=== PATIENT | female | born 1975 | race Caucasian/White ===

== ENCOUNTER 2016-05-06 08:17 | Inpatient (IN) | payer OTHER ==
--- NOTE | 2016-05-06 10:23 | HP ---
CIWA Score - CIWA Score Nausea/Vomitin Muscle Tremors: 3 Anxiety: 3 Agitation: 3 Paroxysmal Sweats: 2 Orientation: 0-Oriented Tacttile Disturbances: 2-Mild Itch/Numbness/Burn Auditory Disturbances: 2-Mild Harshness/Frighten Visual Disturbances: 2-Mild Sensitivity Headache: 2-Mild CIWA-Ar Total Score: 22 Admission ROS BHS - HPI Chief Complaint: i need help to stop drinking alcohol and cocaine Allergies/Adverse Reactions: Allergies Allergy/AdvReac Type Severity Reaction Status Date / Time No Known Allergies Allergy Verified 05/06/16 10:20 History of Present Illness: this 41 years old female with alcohol and cocaine dependence,withdrawal symptom, last detox [facility] 2016 relapsed lately history of asthma ,gerd,depression Exam Limitations: No Limitations - Ebola screening Have you traveled outside of the country in the last 21 days: No Have you had contact with anyone from an Ebola affected area: No Have you been sick,other than usual withdrawal symptoms: No Do you have a fever: No - Review of Systems Constitutional: Loss of Appetite, Malaise, Night Sweats, Changes in sleep, Weakness EENT: reports: Nose Congestion Respiratory: reports: No Symptoms reported, Other (history of asthma) Cardiac: reports: No Symptoms Reported GI: reports: Nausea, Indigestion, Abdominal cramping : reports: No Symptoms Reported Musculoskeletal: reports: Back Pain, Muscle Pain Integumentary: reports: Dryness Neuro: reports: Tremors Endocrine: reports: No Symptoms Reported Hematology: reports: No Symptoms Reported Psychiatric: reports: Anxious, Depressed Patient History - Patient Medical History Hx Anemia: Yes (IRON DEFICIENCY ANEMIA AND SICKLE CELL TRAIT. NOT CURRENTLY ON IRON SUPPLE) Hx Asthma: Yes (ALBUTEROL INHALER) Hx Chronic Obstructive Pulmonary Disease (COPD): No Hx Cardiac Disorders: No Hx Hypertension: No Hx Hypercholesterolemia: No HX Cerebrovascular Accident: No Hx Seizures: No Hx Diabetes: No Hx Gastrointestinal Disorders: Yes (WAS ON NEXIUM) Hx Genitourinary Disorders: Yes (LHX OF CHLAMYDIA, YEAST--UTIs TX IN THE PAST) Hx Sexually Transmitted Disorders: No Hx Renal Disease (ESRD): No Hx Thyroid Disease: No Hx Human Immunodeficiency Virus (HIV): No (NEGATIVE HX) Hx Hepatitis C: No Hx Depression: Yes (NOT CURRENTLY ON MED, BUT WAS ON ZOLOFT IN THE PAST) Hx Suicide Attempt: No Hx Bipolar Disorder: No Hx Schizophrenia: No Other Medical History: no suicidal,no homicidal - Patient Surgical History Past Surgical History: Yes Other Surgical History: ovarian cyst was removed 1992 Anesthesia Reaction: No - PPD History Previous Implant?: Yes Documented Results: Negative w/o proof Implanted On Prior R Admission?: Yes Date: 02/11/14 PPD to be Administered?: Yes - Reproductive History Patient is a Female of Child Bearing Age (11 -55 yrs old): Yes Last Menstrual Period: 04/28/16 Patient : No - Smoking Cessation Smoking history: Current every day smoker Have you smoked in the past 12 months: Yes Aproximately how many cigarettes per day: 30 Hx Chewing Tobacco Use: No Initiated information on smoking cessation: Yes 'Breaking Loose' booklet given: 05/06/16 - Substance & Tx. History Hx Alcohol Use: Yes Hx Substance Use: Yes Substance Use Type: Alcohol, Cocaine Hx Substance Use Treatment: Yes ([facility] 2016) - Substances Abused Cocaine Route: Inhalation Frequency: 3-6 times per week Amount used: $40 Age of first use: 34 Date of Last Use: 05/06/16 Alcohol-beer/dana Route: Oral Frequency: Daily Amount used: 4 (40 oz.) Age of first use: 18 Date of Last Use: 05/06/16 Family Disease History - Family Disease History Family Disease History: Diabetes: Grandparent (HTN), Heart Disease: Father ( alcohol), Other: Grandparent, Mother (alcohol), Sister (THYROID PROBLEM) Admission Physical Exam S - Vital Signs Vital Signs: Vital Signs Temperature 97.1 F L 05/06/16 10:29 Pulse Rate 93 H 05/06/16 10:29 Respiratory Rate 18 05/06/16 10:29 Blood Pressure 115/79 05/06/16 10:29 O2 Sat by Pulse Oximetry (%) - Physical General Appearance: Yes: Moderate Distress, Tremorous, Irritable, Sweating, Anxious HEENTM: Yes: Nasal Congestion Respiratory: Yes: Lungs Clear Neck: Yes: Within Normal Limits Breast: Yes: Breast Exam Deferred Cardiology: Yes: Within Normal Limits, Regular Rhythm, Regular Rate, S1, S2 Abdominal: Yes: Within Normal Limits, Normal Bowel Sounds, Non Tender, Soft Genitourinary: Yes: Within Normal Limits Back: Yes: Muscle Spasm Musculoskeletal: Yes: Back pain, Muscle Pain Extremities: Yes: Tremors Neurological: Yes: multimedia services manager II-XII NML intact, Fully Oriented, Alert, Motor Strength 5/5 Integumentary: Yes: Dry Lymphatic: Yes: Within Normal Limits - Diagnostic (1) Alcohol dependence with uncomplicated withdrawal Current Visit: Yes Status: Acute (2) Cocaine dependence, uncomplicated Current Visit: Yes Status: Acute (3) Asthma Current Visit: No Status: Chronic (4) GERD (gastroesophageal reflux disease) Current Visit: Yes Status: Acute (5) Anxiety associated with depression Current Visit: Yes Status: Acute (6) Sickle cell trait Current Visit: Yes Status: Acute (7) Nicotine dependence Current Visit: Yes Status: Acute Cleared for Admission S - Detox or Rehab S Level of Care: Medically Managed Detox Regimen/Protocol: Librium S Breath Alcohol Content Breath Alcohol Content: 0
[2016-05-06] MEDS ORDERED: chlordiazePOXIDE HCL 25 MG CAPSULE PO ONE (10:34)
[2016-05-06] MEDS ORDERED: LOPERAMIDE HCL 2 MG CAPSULE PO PRN (10:34)
[2016-05-06] MEDS ORDERED: IBUPROFEN 400 MG TABLET (FP) PO PRN (10:34)
[2016-05-06] MEDS ORDERED: MENTHOL/PHENOL 1 EACH UD MM PRN (10:34)
[2016-05-06] MEDS ORDERED: ACETAMINOPHEN 325 MG TABLET (FP) PO PRN (10:34)
[2016-05-06] MEDS ORDERED: hydrOXYzine PAMOATE 25 MG CAPSULE (FP) PO PRN (10:34)
[2016-05-06] MEDS ORDERED: MAG HYDROX/AL HYDROX/SIMETH 30 ML UNIT-DOSE CUP PO PRN (10:34)
[2016-05-06] MEDS ORDERED: MAGNESIUM CITRATE 300 ML BOTTLE PO PRN (10:34)
[2016-05-06] MEDS ORDERED: guaiFENesin/D-METHORPHAN HB 10 ML UNIT-DOSE CUPS PO PRN (10:34)
[2016-05-06] MEDS ORDERED: OXYMETAZOLINE 0.05% NASAL SOLUTION 15 ML BOTTLE NS PRN (10:39)
[2016-05-06 10:42] VITALS: BMI 29.9
[2016-05-06] MEDS: chlordiazePOXIDE HCL 25 MG CAPSULE PO PRN (13:39)
[2016-05-06] MEDS: PANTOPRAZOLE 40 MG TABLET (FP) PO SCH (13:39)
[2016-05-06] MEDS: ASPIRIN COATED 81 MG TABLET.EC PO SCH (13:39)
[2016-05-06] MEDS: chlordiazePOXIDE HCL 25 MG CAPSULE PO SCH ×2 (17:10→22:09)
--- NOTE | 2016-05-06 17:24 | CONSULT ---
[facility] Psychiatric Consult - Data Date of interview: 05/06/16 Admission source: [facility] Identifying data: Readmission to [facility] for this 41 y/o female seeking detox treatment on for alcohol and cocaine dependence.Patient is ,a mother of two,domiciled,unemployed and supported by relatives. Substance Abuse History: - Smoking Cessation. Smoking history: Current every day smoker. Have you smoked in the past 12 months: Yes. Aproximately how many cigarettes per day: 30. Hx Chewing Tobacco Use: No. Initiated information on smoking cessation: Yes. 'Breaking Loose' booklet given: 05/06/16. - Substance & Tx. History. Hx Alcohol Use: Yes. Hx Substance Use: Yes. Substance Use Type : Alcohol, Cocaine. Hx Substance Use [facility]: [facility] - Substances Abused. Cocaine. Route: Inhalation. Frequency: 3-6 times per week. Amount used: $40. Age of first use: 34. Date of Last Use: . Alcohol-beer/dana. Route: Oral. Frequency: Daily. Amount used : 4 (40 oz.). Age of first use: 18. Date of Last Use: 05/06/16. Confirmed by the patient. Medical History: Anemia,bronchial asthma and a history of treatment for chlamydia.Noted report of removal ovarian cyst (1992). Psychiatric History: Patient denies history of psychiatric hospitalizations. Physical/Sexual Abuse/Trauma History: Patient denies. Mental Status Exam - Mental Status Exam Alert and Oriented to: Time, Place, Person Cognitive Function: Good Patient Appearance: Well Groomed Mood: Hopeful, Euthymic Affect: Appropriate, Normal Range Patient Behavior: Fatigued, Appropriate, Cooperative Speech Pattern: Clear, Appropriate Voice Loudness: Normal Thought Process: Goal Oriented Thought Disorder: Not Present Hallucinations: Denies Suicidal Ideation: Denies Homicidal Ideation: Denies Insight/Judgement: Poor Sleep: Well Appetite: Good Muscle strength/Tone: Normal Gait/Station: Normal Psychiatric Findings - Problem List ([place] 1, 2,3) (1) Alcohol dependence with uncomplicated withdrawal Current Visit: Yes Status: Acute (2) Cocaine dependence, uncomplicated Current Visit: Yes Status: Acute (3) Nicotine dependence Current Visit: Yes Status: Acute (4) GERD (gastroesophageal reflux disease) Current Visit: Yes Status: Acute (5) Sickle cell trait Current Visit: Yes Status: Acute (6) Drug-induced mood disorder Current Visit: No Status: Acute (7) Anemia Current Visit: No Status: Chronic Comment: H/O ANEMIA AND SICKLE CELL TRAIT (8) Asthma Current Visit: No Status: Chronic - Initial Treatment Plan Initial Treatment Plan: Psychoeducation.Detoxification.Observation.
[2016-05-06] MEDS: ALBUTEROL SO4 6.7 GM HFA INHALER IH PRN (17:37)
[2016-05-06 18:30] LABS: URINE APPEARANCE CLEAR; URINE BILIRUBIN NEGATIVE (NEGATIVE); URINE BLOOD NEGATIVE (NEGATIVE); URINE COLOR LTYELLOW; URINE GLUCOSE (UA) NEGATIVE (NEGATIVE); URINE KETONE NEGATIVE (NEGATIVE); URINE LEUK ESTERASE TRACE (NEGATIVE); URINE NITRITE NEGATIVE (NEGATIVE); URINE PROTEIN NEGATIVE (NEGATIVE); URINE UROBILINOGEN NEGATIVE E.U./dl (0.2-1.0)
[2016-05-06 18:38] LABS: URINE MUCUS RARE; URINE RBC <1 /hpf (0-3); URINE WBC 2 /hpf (3-5)
[2016-05-06] MEDS: diphenhydrAMINE HCL 50 MG CAPSULE PO PRN (22:09)
[2016-05-06] MEDS: THIAMINE HCL 100 MG TABLET (FP) PO SCH (22:09)
[2016-05-06] MEDS: NICOTINE POLACRILEX 2 MG GUM BUC PRN (22:52)
[2016-05-07] MEDS: chlordiazePOXIDE HCL 25 MG CAPSULE PO SCH ×4 (05:40→22:10)
--- NOTE | 2016-05-07 10:09 | PN ---
S CIWA - CIWA Score Nausea/Vomitin Muscle Tremors: 3 Anxiety: 3 Agitation: 2 Paroxysmal Sweats: No Perspiration Orientation: 1-Uncertain about Date Tacttile Disturbances: 1-Very Mild Itch/Numbness Auditory Disturbances: 1-Very Mild Visual Disturbances: 1-Very Mild Sensitivity Headache: 2-Mild CIWA-Ar Total Score: 17 BHS Progress Note (SOAP) Subjective: ALERT,IRRITABLE,ANXIOUS,INTERRUPTED SLEEP,TREMOR,PAIN IN THE BODY Objective: 05/07/16 10:08 Vital Signs Temperature 98.1 F 05/07/16 09:47 Pulse Rate 89 05/07/16 09:47 Respiratory Rate 18 05/07/16 09:47 Blood Pressure 137/79 05/07/16 09:47 O2 Sat by Pulse Oximetry (%) 05/07/16 10:08 EKG NSR NORMAL ECG Laboratory Last Values Urine Color Ltyellow 05/06/16 13:00 Urine Appearance Clear 05/06/16 13:00 Urine pH 6.0 (5.0-8.0) 05/06/16 13:00 Ur Specific [place] 1.013 (1.001-1.035) 05/06/16 13:00 Urine Protein Negative (NEGATIVE) 05/06/16 13:00 Urine Glucose (UA) Negative (NEGATIVE) 05/06/16 13:00 Urine Ketones Negative (NEGATIVE) 05/06/16 13:00 Urine Blood Negative (NEGATIVE) 05/06/16 13:00 Urine Nitrite Negative (NEGATIVE) 05/06/16 13:00 Urine Bilirubin Negative (NEGATIVE) 05/06/16 13:00 Urine Urobilinogen Negative E.U./dl (0.2-1.0) 05/06/16 13:00 Ur Leukocyte Esterase Trace (NEGATIVE) H 05/06/16 13:00 Urine RBC <1 /hpf (0-3) 05/06/16 13:00 Urine WBC 2 /hpf (3-5) 05/06/16 13:00 Ur Epithelial Cells Few /hpf (FEW) 05/06/16 13:00 Urine Mucus Rare 05/06/16 13:00 LABS PENDING Assessment: 05/07/16 10:09 WITHDRAWAL SYMPTOM Plan: CONTINUE DETOX
[2016-05-07] MEDS: PRENATAL VITAMINS W/ FOLIC ACID TABLET (FP) PO SCH (10:11)
[2016-05-07] MEDS: P-EPHED 60MG/TRIPROLIDI 2.5MG TABLET PO PRN ×2 (10:12→22:11)
[2016-05-07] MEDS: PANTOPRAZOLE 40 MG TABLET (FP) PO SCH (10:12)
[2016-05-07] MEDS: ASPIRIN COATED 81 MG TABLET.EC PO SCH (10:12)
[2016-05-07 10:26] LABS: MCH 31.1 pg (25.7-33.7); MCHC 33.1 g/dl (32.0-36.0); MEAN CELL VOLUME 93.9 fl (80-96); MEAN PLT VOLUME 11.4 fl (7.5-11.1); PLATELET COUNT 249 K/MM3 (134-434); RDW 13.6 % (11.6-15.6); WHITE BLOOD COUNT 12.4 K/mm3 (4.0-10.0)
[2016-05-07 10:37] LABS: ALBUMIN 4.1 g/dl (3.4-5.0); ALK PHOS 94 U/L (45-117); ANION GAP 10 (8-16); BILIRUBIN,TOTAL 0.3 mg/dL (0.2-1.0); CALCIUM 8.9 mg/dL (8.5-10.1); CO2 27 mmol/L (21-32); CREATININE 0.7 mg/dL (0.55-1.02); GLUCOSE,RANDOM 98 mg/dL (74-106); SGOT/AST 13 U/L (15-37); SGPT/ALT 25 U/L (12-78); TOT PROT 7.1 g/dl (6.4-8.2)
[2016-05-07] MEDS: NICOTINE POLACRILEX 2 MG GUM BUC PRN ×3 (11:06→22:12)
[2016-05-07 11:18] LABS: HIV 1 & 2 AB NEGATIVE; HIV 1 AGp24 NEGATIVE
--- NOTE | 2016-05-07 13:25 | EKG ---
Test Reason : Blood Pressure : / mmHG Vent. Rate : 086 BPM Atrial Rate : 086 BPM P-R Int : 132 ms QRS Dur : 068 ms QT Int : 384 ms P-R-T Axes : 050 073 060 degrees QTc Int : 459 ms NORMAL SINUS RHYTHM NORMAL ECG NO PREVIOUS ECGS AVAILABLE Confirmed by TURNER JUAN MD ([id number]) on 05/07/2016 1:25:15 PM Referred By: Kana Magaña Confirmed By:TURNER JUAN MD
[2016-05-07] MEDS: chlordiazePOXIDE HCL 25 MG CAPSULE PO PRN (18:50)
[2016-05-07] MEDS: diphenhydrAMINE HCL 50 MG CAPSULE PO PRN (22:10)
[2016-05-07] MEDS: THIAMINE HCL 100 MG TABLET (FP) PO SCH (22:10)
[2016-05-07] MEDS: MAGNESIUM HYDROX 2400MG/30ML ORAL SUSPENSION 30 ML CUP PO PRN (23:53)
[2016-05-07] MEDS: ALBUTEROL SO4 6.7 GM HFA INHALER IH PRN (23:54)
[2016-05-08] MEDS: chlordiazePOXIDE HCL 25 MG CAPSULE PO SCH ×2 (05:24→10:11)
[2016-05-08] MEDS: PANTOPRAZOLE 40 MG TABLET (FP) PO SCH (10:10)
[2016-05-08] MEDS: PRENATAL VITAMINS W/ FOLIC ACID TABLET (FP) PO SCH (10:10)
--- NOTE | 2016-05-08 10:10 | PN ---
S CIWA - CIWA Score Nausea/Vomitin Muscle Tremors: 3 Anxiety: 3 Agitation: 2 Paroxysmal Sweats: 1-Minimal Palms Moist Orientation: 0-Oriented Tacttile Disturbances: 1-Very Mild Itch/Numbness Auditory Disturbances: 1-Very Mild Visual Disturbances: 1-Very Mild Sensitivity Headache: 2-Mild CIWA-Ar Total Score: 17 BHS Progress Note (SOAP) Subjective: alert,irritable,anxious,interrupted sleep,tremor Objective: 05/08/16 10:06 Vital Signs Temperature 97.5 F L 05/08/16 09:21 Pulse Rate 88 05/08/16 09:21 Respiratory Rate 16 05/08/16 09:21 Blood Pressure 124/74 05/08/16 09:21 O2 Sat by Pulse Oximetry (%) 05/08/16 10:07 Laboratory Last Values WBC 12.4 K/mm3 (4.0-10.0) H D 05/07/16 05:50 RBC 4.61 M/mm3 (3.60-5.2) 05/07/16 05:50 Hgb 14.3 GM/dL (10.7-15.3) 05/07/16 05:50 Hct 43.3 % (32.4-45.2) 05/07/16 05:50 MCV 93.9 fl (80-96) 05/07/16 05:50 MCHC 33.1 g/dl (32.0-36.0) 05/07/16 05:50 RDW 13.6 % (11.6-15.6) 05/07/16 05:50 Plt Count 249 K/MM3 (134-434) D 05/07/16 05:50 MPV 11.4 fl (7.5-11.1) H 05/07/16 05:50 Sodium 139 mmol/L (136-145) 05/07/16 05:50 Potassium 3.9 mmol/L (3.5-5.1) 05/07/16 05:50 Chloride 102 mmol/L (98-107) 05/07/16 05:50 Carbon Dioxide 27 mmol/L (21-32) 05/07/16 05:50 Anion Gap 10 (8-16) 05/07/16 05:50 BUN 8 mg/dL (7-18) D 05/07/16 05:50 Creatinine 0.7 mg/dL (0.55-1.02) 05/07/16 05:50 Creat Clearance w eGFR > 60 (>60) 05/07/16 05:50 Random Glucose 98 mg/dL (74-106) 05/07/16 05:50 Calcium 8.9 mg/dL (8.5-10.1) 05/07/16 05:50 Total Bilirubin 0.3 mg/dL (0.2-1.0) D 05/07/16 05:50 AST 13 U/L (15-37) L D 05/07/16 05:50 ALT 25 U/L (12-78) 05/07/16 05:50 Alkaline Phosphatase 94 U/L (45-117) D 05/07/16 05:50 Total Protein 7.1 g/dl (6.4-8.2) D 05/07/16 05:50 Albumin 4.1 g/dl (3.4-5.0) D 05/07/16 05:50 Urine Color Ltyellow 05/06/16 13:00 Urine Appearance Clear 05/06/16 13:00 Urine pH 6.0 (5.0-8.0) 05/06/16 13:00 Ur Specific [place] 1.013 (1.001-1.035) 05/06/16 13:00 Urine Protein Negative (NEGATIVE) 05/06/16 13:00 Urine Glucose (UA) Negative (NEGATIVE) 05/06/16 13:00 Urine Ketones Negative (NEGATIVE) 05/06/16 13:00 Urine Blood Negative (NEGATIVE) 05/06/16 13:00 Urine Nitrite Negative (NEGATIVE) 05/06/16 13:00 Urine Bilirubin Negative (NEGATIVE) 05/06/16 13:00 Urine Urobilinogen Negative E.U./dl (0.2-1.0) 05/06/16 13:00 Ur Leukocyte Esterase Trace (NEGATIVE) H 05/06/16 13:00 Urine RBC <1 /hpf (0-3) 05/06/16 13:00 Urine WBC 2 /hpf (3-5) 05/06/16 13:00 Ur Epithelial Cells Few /hpf (FEW) 05/06/16 13:00 Urine Mucus Rare 05/06/16 13:00 RPR Titer Nonreactive (NONREACTIVE) 05/07/16 05:50 HIV 1&2 Antibody Screen Negative 05/07/16 09:00 HIV P24 Antigen Negative 05/07/16 09:00 Assessment: 05/08/16 10:08 withdrawal symptom Plan: continue detox,wbc 12,400,encourage oral fluid,repeat cbc in am
[2016-05-08] MEDS: ASPIRIN COATED 81 MG TABLET.EC PO SCH (10:11)
[2016-05-08] MEDS: P-EPHED 60MG/TRIPROLIDI 2.5MG TABLET PO PRN (10:13)
[2016-05-08] MEDS: chlordiazePOXIDE 5 MG CAPSULE PO SCH ×2 (17:57→22:03)
[2016-05-08] MEDS: THIAMINE HCL 100 MG TABLET (FP) PO SCH (22:03)
[2016-05-08] MEDS: NICOTINE POLACRILEX 2 MG GUM BUC PRN (22:09)
[2016-05-08] MEDS: diphenhydrAMINE HCL 50 MG CAPSULE PO PRN (22:50)
[2016-05-09] MEDS: chlordiazePOXIDE 5 MG CAPSULE PO SCH ×2 (05:28→10:21)
[2016-05-09] MEDS: NICOTINE POLACRILEX 2 MG GUM BUC PRN ×2 (05:44→11:10)
[2016-05-09 10:16] LABS: MCH 31.4 pg (25.7-33.7); MCHC 33.6 g/dl (32.0-36.0); MEAN CELL VOLUME 93.4 fl (80-96); MEAN PLT VOLUME 10.8 fl (7.5-11.1); PLATELET COUNT 206 K/MM3 (134-434); RDW 13.3 % (11.6-15.6); WHITE BLOOD COUNT 8.2 K/mm3 (4.0-10.0)
[2016-05-09] MEDS: ASPIRIN COATED 81 MG TABLET.EC PO SCH (10:20)
[2016-05-09] MEDS: PRENATAL VITAMINS W/ FOLIC ACID TABLET (FP) PO SCH (10:20)
[2016-05-09] MEDS: PANTOPRAZOLE 40 MG TABLET (FP) PO SCH (10:21)
[2016-05-09] MEDS: MAGNESIUM HYDROX 2400MG/30ML ORAL SUSPENSION 30 ML CUP PO PRN (11:11)
--- NOTE | 2016-05-09 11:20 | PN ---
S Progress Note (SOAP) Subjective: ALERT,INTERRUPTED SLEEP,DEPRESSION Objective: 05/09/16 11:18 Vital Signs Temperature 97.8 F 05/09/16 10:00 Pulse Rate 98 H 05/09/16 10:00 Respiratory Rate 18 05/09/16 10:00 Blood Pressure 106/71 05/09/16 10:00 O2 Sat by Pulse Oximetry (%) 05/09/16 11:18 Laboratory Last Values WBC 8.2 K/mm3 (4.0-10.0) D 05/09/16 08:00 RBC 4.48 M/mm3 (3.60-5.2) 05/09/16 08:00 Hgb 14.1 GM/dL (10.7-15.3) 05/09/16 08:00 Hct 41.8 % (32.4-45.2) 05/09/16 08:00 MCV 93.4 fl (80-96) 05/09/16 08:00 MCHC 33.6 g/dl (32.0-36.0) 05/09/16 08:00 RDW 13.3 % (11.6-15.6) 05/09/16 08:00 Plt Count 206 K/MM3 (134-434) 05/09/16 08:00 MPV 10.8 fl (7.5-11.1) 05/09/16 08:00 Sodium 139 mmol/L (136-145) 05/07/16 05:50 Potassium 3.9 mmol/L (3.5-5.1) 05/07/16 05:50 Chloride 102 mmol/L (98-107) 05/07/16 05:50 Carbon Dioxide 27 mmol/L (21-32) 05/07/16 05:50 Anion Gap 10 (8-16) 05/07/16 05:50 BUN 8 mg/dL (7-18) D 05/07/16 05:50 Creatinine 0.7 mg/dL (0.55-1.02) 05/07/16 05:50 Creat Clearance w eGFR > 60 (>60) 05/07/16 05:50 Random Glucose 98 mg/dL (74-106) 05/07/16 05:50 Calcium 8.9 mg/dL (8.5-10.1) 05/07/16 05:50 Total Bilirubin 0.3 mg/dL (0.2-1.0) D 05/07/16 05:50 AST 13 U/L (15-37) L D 05/07/16 05:50 ALT 25 U/L (12-78) 05/07/16 05:50 Alkaline Phosphatase 94 U/L (45-117) D 05/07/16 05:50 Total Protein 7.1 g/dl (6.4-8.2) D 05/07/16 05:50 Albumin 4.1 g/dl (3.4-5.0) D 05/07/16 05:50 Urine Color Ltyellow 05/06/16 13:00 Urine Appearance Clear 05/06/16 13:00 Urine pH 6.0 (5.0-8.0) 05/06/16 13:00 Ur Specific [place] 1.013 (1.001-1.035) 05/06/16 13:00 Urine Protein Negative (NEGATIVE) 05/06/16 13:00 Urine Glucose (UA) Negative (NEGATIVE) 05/06/16 13:00 Urine Ketones Negative (NEGATIVE) 05/06/16 13:00 Urine Blood Negative (NEGATIVE) 05/06/16 13:00 Urine Nitrite Negative (NEGATIVE) 05/06/16 13:00 Urine Bilirubin Negative (NEGATIVE) 05/06/16 13:00 Urine Urobilinogen Negative E.U./dl (0.2-1.0) 05/06/16 13:00 Ur Leukocyte Esterase Trace (NEGATIVE) H 05/06/16 13:00 Urine RBC <1 /hpf (0-3) 05/06/16 13:00 Urine WBC 2 /hpf (3-5) 05/06/16 13:00 Ur Epithelial Cells Few /hpf (FEW) 05/06/16 13:00 Urine Mucus Rare 05/06/16 13:00 RPR Titer Nonreactive (NONREACTIVE) 05/07/16 05:50 HIV 1&2 Antibody Screen Negative 05/07/16 09:00 HIV P24 Antigen Negative 05/07/16 09:00 Assessment: 05/09/16 11:18 WITHDRAWAL SYMPTOM Plan: CONTINUE DETOX,REPEAT CBC NORMAL,PSYCHIATRIC EVALUATION FOR DEPRESSION, DISCHARGE IN AM
[2016-05-09] MEDS: chlordiazePOXIDE HCL 10 MG CAPSULE PO SCH ×2 (17:18→22:07)
--- NOTE | 2016-05-09 17:42 | PN ---
[facility] Progress Note Note: Psychiatry Attending's note : Asked to see this patient. Patient states that she needs script for Vistaril at discharge. Ms Maguire denies feeling depressed.Not suicidal or homicidal. Patient is visible,well groomed,active and sociable.No acting out. Adherent to medications and redirections.Benign hospital course. Cognitively intact.No evidence of distress.Baseline mental status. Patient reports that she feels motivated for maintenance of sobriety. Doing well.Overall response to this treatment : favorable. Plan :
[2016-05-09] MEDS: THIAMINE HCL 100 MG TABLET (FP) PO SCH (22:07)
[2016-05-09] MEDS: diphenhydrAMINE HCL 50 MG CAPSULE PO PRN (22:08)
[2016-05-09] MEDS: P-EPHED 60MG/TRIPROLIDI 2.5MG TABLET PO PRN (22:09)
[2016-05-10] MEDS: chlordiazePOXIDE HCL 10 MG CAPSULE PO SCH ×2 (05:55→10:10)
--- NOTE | 2016-05-10 08:52 | DS ---
[facility] Detox Discharge Summary Admission Date: 05/06/16 Discharge Date: 05/10/16 - History Present History: Alcohol Dependence, Cocaine Dependence - Physical Exam Results Vital Signs: Vital Signs Temperature 98.1 F 05/10/16 06:00 Pulse Rate 86 05/10/16 06:00 Respiratory Rate 18 05/10/16 06:00 Blood Pressure 109/74 05/10/16 06:00 O2 Sat by Pulse Oximetry (%) - Treatment Hospital Course: Detox Protocol Followed, Detoxed Safely, Responded well, Discharged Condition Good - Medication Discharge Medications: Ambulatory Orders Albuterol Sulfate Inhaler - [Ventolin HFA Inhaler -] 2 inh PO Q4H 02/09/14 Aspirin [Aspirin EC] 81 mg PO DAILY 02/09/14 Diphenhydramine HCl [Benadryl -] 50 mg PO DAILY 05/06/16 Oxymetazoline 0.05% Nasal Soln [Afrin -] 1 spray NS DAILY PRN 05/06/16 Hydroxyzine Pamoate [Vistaril -] 25 mg PO TID #60 capsule 05/09/16 - Diagnosis (1) Alcohol dependence with uncomplicated withdrawal Current Visit: Yes Status: Chronic (2) Anxiety associated with depression Current Visit: Yes Status: Chronic (3) Cocaine dependence, uncomplicated Current Visit: Yes Status: Chronic (4) GERD (gastroesophageal reflux disease) Current Visit: Yes Status: Chronic (5) Nicotine dependence Current Visit: Yes Status: Chronic Qualifiers: Nicotine product type: cigarettes Substance use status: uncomplicated Qualified Code(s): F17.210 - Nicotine dependence, cigarettes, uncomplicated (6) Sickle cell trait Current Visit: Yes Status: Chronic - AMA Did Patient Leave Against Medical Advice: No
[2016-05-10 09:48] VITALS: BP 126/79; PULSE 94; TEMP 97.7
[2016-05-10] MEDS: PRENATAL VITAMINS W/ FOLIC ACID TABLET (FP) PO SCH (10:09)
[2016-05-10] MEDS: ASPIRIN COATED 81 MG TABLET.EC PO SCH (10:10)
[2016-05-10] MEDS: ALBUTEROL SO4 6.7 GM HFA INHALER IH PRN (10:10)
[2016-05-10] MEDS: PANTOPRAZOLE 40 MG TABLET (FP) PO SCH (10:10)
[2016-05-10] MEDS: NICOTINE POLACRILEX 2 MG GUM BUC PRN (10:12)
== END 2016-05-10 11:45 | disposition home or self-care (01) | DRG 774 ==
LOC: YASAS 08:17 → Y6N 10:27
PROVIDERS: ADMIT Internal Medicine; ATTEND Internal Medicine
PROC: HZ2ZZZZ Detoxification Services for Substance Abuse Treatment (ICD-10-PCS; principal; 2016-05-06)
DX: F10.230 Alcohol dependence with withdrawal, uncomplicated (principal); F14.20 Cocaine dependence, uncomplicated; F17.210 Nicotine dependence, cigarettes, uncomplicated; F19.24 Other psychoactive substance dependence with psychoactive substance-induced mood disorder; F41.8 Other specified anxiety disorders; K21.9 Gastro-esophageal reflux disease without esophagitis; D57.3 Sickle-cell trait; J45.909 Unspecified asthma, uncomplicated; Z87.42 Personal history of other diseases of the female genital tract; Z87.440 Personal history of urinary (tract) infections
CPT/HCPCS: 36415; 80053; 81003; 81015; 85027; 86593; 87389; 93005; 93010

== ENCOUNTER 2017-01-03 10:00 | Inpatient (IN) | payer OTHER ==
[2017-01-03 10:19] VITALS: BMI 25.6
--- NOTE | 2017-01-03 11:22 | HP ---
CIWA Score - CIWA Score Nausea/Vomitin-No Nausea/No Vomiting Muscle Tremors: 4-Moderate,w/Arms Extend Anxiety: 3 Agitation: 4-Moderately Restless Paroxysmal Sweats: 3 Orientation: 0-Oriented Tacttile Disturbances: 0-None Auditory Disturbances: 0-None Visual Disturbances: 0-None Headache: 3-Moderate CIWA-Ar Total Score: 17 Admission ROS BHS - HPI Chief Complaint: I am here for detox. Allergies/Adverse Reactions: Allergies Allergy/AdvReac Type Severity Reaction Status Date / Time No Known Allergies Allergy Verified 01/03/17 10:45 History of Present Illness: pt is a 41yr old female with a history of alcohol and cocaine dependence seeking detox for a treatment. Exam Limitations: No Limitations - Ebola screening Have you traveled outside of the country in the last 21 days: No Have you had contact with anyone from an Ebola affected area: No Have you been sick,other than usual withdrawal symptoms: No Do you have a fever: No - Review of Systems Constitutional: Chills, Diaphoresis EENT: reports: Tearing, Nose Congestion, Other (sinus infections) Respiratory: reports: No Symptoms reported Cardiac: reports: No Symptoms Reported GI: reports: Diarrhea, Poor Fluid Intake, Indigestion : reports: No Symptoms Reported Musculoskeletal: reports: Back Pain, Joint Pain Integumentary: reports: Flushing, Sweating Neuro: reports: Headache, Tingling, Tremors Endocrine: reports: Excessive Sweating, Flushing, Intolerance to Cold, Intolerance to Heat Hematology: reports: No Symptoms Reported, Other (sickle cell trait) Psychiatric: reports: Mood/Affect Appropiate, Orientated x3, Agitated, Anxious, Depressed Other Systems: Reviewed and Negative Patient History - Patient Medical History Hx Anemia: Yes (IRON DEFICIENCY ANEMIA AND SICKLE CELL TRAIT. NOT CURRENTLY ON IRON SUPPLE) Hx Asthma: Yes (Pt is on MDI.) Hx Chronic Obstructive Pulmonary Disease (COPD): No Hx Cardiac Disorders: No Hx Hypertension: No Hx Hypercholesterolemia: No HX Cerebrovascular Accident: No Hx Seizures: No Hx Diabetes: No Hx Gastrointestinal Disorders: Yes (Pt has chronic acid reflux.) Hx Genitourinary Disorders: No Hx Sexually Transmitted Disorders: No Hx Renal Disease (ESRD): No Hx Thyroid Disease: No Hx Human Immunodeficiency Virus (HIV): No (NEGATIVE HX) Hx Hepatitis C: No (negative) Hx Depression: Yes Hx Suicide Attempt: No (denies) Hx Bipolar Disorder: No Hx Schizophrenia: No - Patient Surgical History Past Surgical History: Yes Hx Neurologic Surgery: No Hx Cataract Extraction: No Hx Cardiac Surgery: No Hx Lung Surgery: No Hx Breast Surgery: No Hx Breast Biopsy: No Hx Abdominal Surgery: Yes Hx Appendectomy: No Hx Cholecystectomy: No Hx Genitourinary Surgery: No Hx Section: No Hx Orthopedic Surgery: No Other Surgical History: ovarian cyst was removed 1992 Anesthesia Reaction: No - PPD History Previous Implant?: Yes Documented Results: Negative w/proof Implanted On Prior [facility] Admission?: Yes Date: 05/08/16 Results: 0mm PPD to be Administered?: No - Reproductive History Patient is a Female of Child Bearing Age (11 -55 yrs old): Yes Last Menstrual Period: 12/19/16 Patient : No - Smoking Cessation Smoking history: Current every day smoker Have you smoked in the past 12 months: Yes Aproximately how many cigarettes per day: 30 Hx Chewing Tobacco Use: No Initiated information on smoking cessation: Yes 'Breaking Loose' booklet given: 01/03/17 - Substance & Tx. History Hx Alcohol Use: Yes Hx Substance Use: Yes Substance Use Type: Alcohol, Cocaine Hx Substance Use Treatment: Yes (last detox 04/2016 [facility]) - Substances Abused Alcohol Route: Oral Frequency: Daily Amount used: 6pk beer and up Age of first use: 34 Date of Last Use: 01/03/17 Cocaine Route: Inhalation Frequency: 3-6 times per week Amount used: 1 gram Age of first use: 35 Date of Last Use: 01/03/17 Family Disease History - Family Disease History Family Disease History: Diabetes: Grandparent (HTN), Heart Disease: Father ( alcohol), Other: Grandparent, Mother (alcohol), Sister (THYROID PROBLEM) Admission Physical Exam BHS - Vital Signs Vital Signs: Vital Signs - 24 hr 01/03/17 10:13 Temperature 96.8 F L Pulse Rate 100 H Respiratory 18 Rate Blood Pressure 125/87 - Physical General Appearance: Yes: Appropriately Dressed, Moderate Distress, Tremorous, Irritable, Sweating, Anxious HEENTM: Yes: Nasal Congestion, Rhinorrhea, Sinus Tenderness Respiratory: Yes: Lungs Clear, Normal Breath Sounds, No Respiratory Distress Neck: Yes: No masses,lesions,Nodules Breast: Yes: Within Normal Limits Cardiology: Yes: Regular Rhythm, Regular Rate, S1, S2 Abdominal: Yes: Normal Bowel Sounds, Non Tender, Soft Genitourinary: Yes: Within Normal Limits Back: Yes: Normal Inspection Musculoskeletal: Yes: full range of Motion Extremities: Yes: Normal Capillary Refill, Normal Inspection, Non-Tender, Tremors Neurological: Yes: Fully Oriented, Alert, Normal Response Integumentary: Yes: Normal Color, Diaphoresis Lymphatic: Yes: Within Normal Limits - Diagnostic (1) Alcohol dependence with uncomplicated withdrawal Current Visit: Yes Status: Chronic (2) Cocaine dependence, uncomplicated Current Visit: Yes Status: Chronic (3) Nicotine dependence Current Visit: Yes Status: Chronic Qualifiers: Nicotine product type: cigarettes Substance use status: uncomplicated Qualified Code(s): F17.210 - Nicotine dependence, cigarettes, uncomplicated; F17.210 - Nicotine dependence, cigarettes, uncomplicated (4) Sinus infection Current Visit: Yes Status: Acute Qualifiers: Sinusitis location: maxillary Chronicity: acute Cleared for Admission [facility] - Detox or Rehab [facility] Level of Care: Medically Managed Detox Regimen/Protocol: Librium [facility] Breath Alcohol Content Breath Alcohol Content: 0.064 Urine Pregancy Test - Result Urine Test Results: Negative- NO Line Present Urine Drug Screen - Results Drug Screen Negative: No Urine Drug Screen Results: ELIA-Cocaine, MTD-Methadone
[2017-01-03] MEDS ORDERED: ACETAMINOPHEN 325 MG TABLET (FP) PO PRN (11:31)
[2017-01-03] MEDS ORDERED: MAGNESIUM CITRATE 300 ML BOTTLE PO PRN (11:31)
[2017-01-03] MEDS ORDERED: LOPERAMIDE HCL 2 MG CAPSULE PO PRN (11:31)
[2017-01-03] MEDS ORDERED: hydrOXYzine PAMOATE 50 MG CAPSULE (FP) PO PRN (11:31)
[2017-01-03] MEDS ORDERED: MAGNESIUM HYDROX 2400MG/30ML ORAL SUSPENSION 30 ML CUP PO PRN (11:31)
[2017-01-03] MEDS ORDERED: diphenhydrAMINE HCL 50 MG CAPSULE PO PRN (11:31)
[2017-01-03] MEDS ORDERED: MENTHOL/PHENOL 1 EACH UD MM PRN (11:31)
[2017-01-03] MEDS ORDERED: chlordiazePOXIDE HCL 25 MG CAPSULE PO PRN (11:31)
[2017-01-03] MEDS ORDERED: ALBUTEROL SO4 18 GM HFA INHALER IH PRN (11:35)
[2017-01-03] MEDS ORDERED: chlordiazePOXIDE HCL 25 MG CAPSULE PO ONE (11:44)
[2017-01-03] MEDS ORDERED: CEPHALEXIN 250 MG/5 ML ORAL SUSPENSION PO SCH (12:00)
[2017-01-03] MEDS: IBUPROFEN 400 MG TABLET (FP) PO PRN ×2 (13:25→22:29)
[2017-01-03] MEDS: CEPHALEXIN MONOHYDRATE 500 MG CAPSULE (UD) PO SCH ×3 (13:25→23:22)
[2017-01-03] MEDS: NICOTINE 21 MG/24 HOURS TOPICAL PATCH TD SCH (13:25)
[2017-01-03] MEDS: MAG HYDROX/AL HYDROX/SIMETH 30 ML UNIT-DOSE CUP PO PRN (13:32)
[2017-01-03] MEDS: MUPIROCIN 2% TOPICAL OINTMENT FOR DECOLONIZATION NS SCH ×2 (14:04→22:41)
[2017-01-03] MEDS: SODIUM CHLORIDE NASAL SPRAY 44 ML BOTTLE NS PRN ×2 (14:06→22:25)
--- NOTE | 2017-01-03 15:59 | CONSULT ---
[facility] Psychiatric Consult - Data Date of interview: 01/03/17 Admission source: [facility] Identifying data: Another admission to [facility] for this 41 y/o female seeking detox treatment on for alcohol and cocaine dependence.Patient is ,a mother of two,domiciled and employed. Substance Abuse History: Confirmed by patient. Smoking Cessation. Smoking history: Current every day smoker. Have you smoked in the past 12 months: Yes. Aproximately how many cigarettes per day: 30. Hx Chewing Tobacco Use: No. Initiated information on smoking cessation: Yes. 'Breaking Loose' booklet given : 01/03/17. - Substance & Tx. History. Hx Alcohol Use: Yes. Hx Substance Use : Yes. Substance Use Type: Alcohol, Cocaine. Hx Substance Use Treatment: Yes ( last detox 04/2016 [facility]). - Substances Abused. Alcohol. Route: Oral. Frequency: Daily. Amount used: 6pk beer and up. Age of first use: 34. Date of Last Use: 01/03/17. Cocaine. Route: Inhalation. Frequency: 3-6 times per week. Amount used: 1 gram. Age of first use: 35. Date of Last Use: Medical History: Anemia,bronchial asthma and a history of treatment for chlamydia.Noted report of removal ovarian cyst (1992). Psychiatric History: Patient denies. Physical/Sexual Abuse/Trauma History: Denies. Additional Comment: Urine Drug Screen Results: ELIA-Cocaine, MTD-Methadone.Noted. Mental Status Exam - Mental Status Exam Alert and Oriented to: Time, Place, Person Cognitive Function: Good Patient Appearance: Well Groomed Mood: Withdrawn, Hopeful Affect: Appropriate, Normal Range Patient Behavior: Fatigued, Appropriate, Cooperative Speech Pattern: Clear Voice Loudness: Normal Thought Process: Intact, Goal Oriented Thought Disorder: Not Present Hallucinations: Denies Suicidal Ideation: Denies Homicidal Ideation: Denies Insight/Judgement: Poor Sleep: Poorly, Difficulty falling asleep Muscle strength/Tone: Normal Gait/Station: Normal Psychiatric Findings - Problem List ([place] 1, 2,3) (1) Alcohol dependence with uncomplicated withdrawal Current Visit: Yes Status: Acute (2) Cocaine dependence, uncomplicated Current Visit: Yes Status: Acute (3) Nicotine dependence Current Visit: Yes Status: Acute Qualifiers: Nicotine product type: cigarettes Substance use status: uncomplicated Qualified Code(s): F17.210 - Nicotine dependence, cigarettes, uncomplicated; F17.210 - Nicotine dependence, cigarettes, uncomplicated (4) Drug-induced mood disorder Current Visit: Yes Status: Acute (5) Anemia Current Visit: No Status: Chronic Comment: H/O ANEMIA AND SICKLE CELL TRAIT (6) Asthma Current Visit: Yes Status: Chronic (7) GERD (gastroesophageal reflux disease) Current Visit: Yes Status: Chronic (8) Insomnia Current Visit: Yes Status: Acute - Initial Treatment Plan Initial Treatment Plan: Psychoeducation.Detoxification.Ambien 10 mg po hs prn.Sleep hygiene discussed.Patient is made aware of potential for parasomnias.Consent (verbal) given.Observation.
[2017-01-03 16:37] LABS: MCH 31.3 pg (25.7-33.7); MCHC 33.6 g/dl (32.0-36.0); MEAN PLT VOLUME 11.2 fl (7.5-11.1); PLATELET COUNT 245 K/MM3 (134-434); RDW 13.6 % (11.6-15.6); WHITE BLOOD COUNT 15.7 K/mm3 (4.0-10.0)
[2017-01-03 16:49] LABS: URINE APPEARANCE CLEAR; URINE BILIRUBIN NEGATIVE (NEGATIVE); URINE BLOOD NEGATIVE (NEGATIVE); URINE COLOR STRAW; URINE GLUCOSE (UA) NEGATIVE (NEGATIVE); URINE KETONE NEGATIVE (NEGATIVE); URINE NITRITE NEGATIVE (NEGATIVE); URINE PROTEIN NEGATIVE (NEGATIVE); URINE UROBILINOGEN NEGATIVE mg/dL (0.2-1.0)
[2017-01-03 16:53] LABS: ANION GAP 8 (8-16); CALCIUM 8.7 mg/dL (8.5-10.1); CO2 27 mmol/L (21-32); CREATININE 0.6 mg/dL (0.55-1.02); GLUCOSE,RANDOM 96 mg/dL (74-106); SGOT/AST 11 U/L (15-37); SGPT/ALT 27 U/L (12-78)
[2017-01-03 16:54] LABS: ALK PHOS 80 U/L (45-117); BILIRUBIN,TOTAL 0.5 mg/dL (0.2-1.0); TOT PROT 7.1 g/dl (6.4-8.2)
[2017-01-03] MEDS ORDERED: PANTOPRAZOLE 20 MG TABLET (FP) PO ONE (17:00)
[2017-01-03] MEDS ORDERED: RANITIDINE HCL 150 MG TABLET (FP) PO ONE (17:00)
[2017-01-03] MEDS: chlordiazePOXIDE HCL 25 MG CAPSULE PO SCH ×2 (17:18→22:27)
[2017-01-03 18:20] LABS: URINE LEUK ESTERASE Negative (NEGATIVE)
[2017-01-03] MEDS ORDERED: RANITIDINE HCL 150 MG TABLET (FP) PO SCH (22:00)
[2017-01-03] MEDS: P-EPHED 60MG/TRIPROLIDI 2.5MG TABLET PO PRN (22:24)
[2017-01-03] MEDS: ZOLPIDEM TARTRATE 10 MG TABLET (PARK CARE ONLY) PO PRN (22:25)
[2017-01-03] MEDS: BUDESONIDE/FORMETEROL FUMARATE 80/4.5 mcg INHALER IH SCH (22:27)
[2017-01-03] MEDS: RANITIDINE HCL 150 MG TABLET (FP) PO SCH (22:28)
[2017-01-03] MEDS: THIAMINE HCL 100 MG TABLET (FP) PO SCH (22:28)
[2017-01-04] MEDS: chlordiazePOXIDE HCL 25 MG CAPSULE PO SCH ×4 (06:23→22:39)
[2017-01-04] MEDS: CEPHALEXIN MONOHYDRATE 500 MG CAPSULE (UD) PO SCH ×3 (06:23→17:44)
[2017-01-04] MEDS: SODIUM CHLORIDE NASAL SPRAY 44 ML BOTTLE NS PRN ×2 (06:27→12:42)
[2017-01-04] MEDS ORDERED: PANTOPRAZOLE 20 MG TABLET (FP) PO SCH (10:00)
[2017-01-04] MEDS: BUDESONIDE/FORMETEROL FUMARATE 80/4.5 mcg INHALER IH SCH ×2 (10:50→22:39)
[2017-01-04] MEDS: MUPIROCIN 2% TOPICAL OINTMENT FOR DECOLONIZATION NS SCH ×2 (10:50→23:15)
[2017-01-04] MEDS: PRENATAL VITAMINS W/ FOLIC ACID TABLET (FP) PO SCH (10:50)
[2017-01-04] MEDS: RANITIDINE HCL 150 MG TABLET (FP) PO SCH ×2 (10:51→22:39)
[2017-01-04] MEDS: PANTOPRAZOLE 20 MG TABLET (FP) PO SCH (10:51)
[2017-01-04] MEDS: guaiFENesin/D-METHORPHAN HB 10 ML UNIT-DOSE CUPS PO PRN ×2 (10:56→23:22)
[2017-01-04] MEDS: NICOTINE POLACRILEX 4 MG GUM BUC PRN ×2 (10:57→23:36)
[2017-01-04] MEDS: NICOTINE 21 MG/24 HOURS TOPICAL PATCH TD SCH (10:58)
[2017-01-04] MEDS: P-EPHED 60MG/TRIPROLIDI 2.5MG TABLET PO PRN ×2 (11:15→23:16)
--- NOTE | 2017-01-04 11:57 | EKG ---
Test Reason : Blood Pressure : / mmHG Vent. Rate : 078 BPM Atrial Rate : 078 BPM P-R Int : 130 ms QRS Dur : 072 ms QT Int : 382 ms P-R-T Axes : 030 067 049 degrees QTc Int : 435 ms NORMAL SINUS RHYTHM NORMAL ECG WHEN COMPARED WITH ECG OF 06-MAY-2016 13:34, NO SIGNIFICANT CHANGE WAS FOUND Confirmed by ROSARIO HUYNH MD ([id number]) on 01/04/2017 11:56:36 AM Referred By: Confirmed By:ROSARIO HUYNH MD
[2017-01-04] MEDS ORDERED: PANTOPRAZOLE 20 MG TABLET (FP) PO ONE (12:30)
[2017-01-04] MEDS ORDERED: PHENYLEPHRINE 0.25%/STARCH 1 EACH SUPP.RECT RC SCH (12:45)
[2017-01-04] MEDS ORDERED: ALBUTEROL SO4 0.083% IH SOL 2.5 MG/3 ML VIAL.NEB. NEB ONE (12:45)
--- NOTE | 2017-01-04 13:53 | PN ---
[facility] CIWA - CIWA Score Nausea/Vomitin Muscle Tremors: 4-Moderate,w/Arms Extend Anxiety: 5 Agitation: 4-Moderately Restless Paroxysmal Sweats: 3 Orientation: 0-Oriented Tacttile Disturbances: 1-Very Mild Itch/Numbness Auditory Disturbances: 0-None Visual Disturbances: 0-None Headache: 0-None Present CIWA-Ar Total Score: 20 BHS Progress Note (SOAP) Subjective: Anxious, restless, agitated, sweating, tremor, chills Objective: 01/04/17 13:49 Last Vital Signs Temp Pulse Resp BP Pulse Ox 97.5 F L 76 18 119/63 01/04/17 10:00 01/04/17 10:00 01/04/17 10:00 01/04/17 10:00 Laboratory Tests 01/03/17 01/03/17 01/03/17 11:00 11:00 11:00 WBC 15.7 H D RBC 4.64 Hgb 14.5 Hct 43.1 MCV 93.0 MCH 31.3 MCHC 33.6 RDW 13.6 Plt Count 245 MPV 11.2 H Sodium 139 Potassium 4.2 Chloride 104 Carbon Dioxide 27 Anion Gap 8 BUN 9 Creatinine 0.6 Creat Clearance w eGFR > 60 Random Glucose 96 Calcium 8.7 Total Bilirubin 0.5 D AST 11 L ALT 27 Alkaline Phosphatase 80 Total Protein 7.1 Albumin 4.0 Urine Color Urine Appearance Urine pH Ur Specific [place] Urine Protein Urine Glucose (UA) Urine Ketones Urine Blood Urine Nitrite Urine Bilirubin Urine Urobilinogen Ur Leukocyte Esterase RPR Titer Nonreactive 01/03/17 15:30 WBC RBC Hgb Hct MCV MCH MCHC RDW Plt Count MPV Sodium Potassium Chloride Carbon Dioxide Anion Gap BUN Creatinine Creat Clearance w eGFR Random Glucose Calcium Total Bilirubin AST ALT Alkaline Phosphatase Total Protein Albumin Urine Color Straw Urine Appearance Clear Urine pH 6.0 Ur Specific [place] <= 1.005 Urine Protein Negative Urine Glucose (UA) Negative Urine Ketones Negative Urine Blood Negative Urine Nitrite Negative Urine Bilirubin Negative Urine Urobilinogen Negative Ur Leukocyte Esterase Negative RPR Titer Labs noted: WBC 15.7 Assessment: 01/04/17 13:50 Withdrawal symptoms Noted with leukocytosis Plan: Continue detox Leukocytosis: encouraged to provide labs. Patient has been uncooperative with lab draw. General Passenger Agent attempted multiple times to draw blood this morning but patient kept refusing and as per staff, patient pulled out the needle at one point. Stippler, RN and blending kettle tender encouraged patient to cooperate with blood draw but unsuccessful at this time. Will reorder in AM. Patient appears drowsy and manic at this time. H/O Asthma: albuterol nebulizer q6hr prn for chest discomfort if not relieved by albuterol mdi. Patient is not in any apparent distress.
[2017-01-04] MEDS: ALBUTEROL SO4 0.083% IH SOL 2.5 MG/3 ML VIAL.NEB. NEB PRN (17:49)
[2017-01-04] MEDS: PHENYLEPHRINE 0.25%/STARCH 1 EACH SUPP.RECT RC SCH ×2 (17:58→23:13)
[2017-01-04] MEDS: THIAMINE HCL 100 MG TABLET (FP) PO SCH (22:38)
[2017-01-04] MEDS: ZOLPIDEM TARTRATE 10 MG TABLET (PARK CARE ONLY) PO PRN (22:39)
[2017-01-04] MEDS: IBUPROFEN 400 MG TABLET (FP) PO PRN (23:17)
[2017-01-05] MEDS: chlordiazePOXIDE HCL 25 MG CAPSULE PO SCH ×2 (06:00→11:32)
[2017-01-05] MEDS: CEPHALEXIN MONOHYDRATE 500 MG CAPSULE (UD) PO SCH ×6 (06:27→23:07)
[2017-01-05] MEDS: BUDESONIDE/FORMETEROL FUMARATE 80/4.5 mcg INHALER IH SCH ×2 (11:23→22:27)
[2017-01-05] MEDS: PRENATAL VITAMINS W/ FOLIC ACID TABLET (FP) PO SCH (11:24)
[2017-01-05] MEDS: RANITIDINE HCL 150 MG TABLET (FP) PO SCH ×2 (11:24→22:27)
[2017-01-05] MEDS: PANTOPRAZOLE 20 MG TABLET (FP) PO SCH (11:24)
[2017-01-05] MEDS: MUPIROCIN 2% TOPICAL OINTMENT FOR DECOLONIZATION NS SCH ×2 (11:25→22:25)
[2017-01-05] MEDS: NICOTINE 21 MG/24 HOURS TOPICAL PATCH TD SCH (11:28)
--- NOTE | 2017-01-05 12:10 | PN ---
[facility] CIWA - CIWA Score Nausea/Vomitin-No Nausea/No Vomiting Muscle Tremors: 3 Anxiety: 3 Agitation: 3 Paroxysmal Sweats: 3 Orientation: 0-Oriented Tacttile Disturbances: 0-None Auditory Disturbances: 0-None Visual Disturbances: 0-None Headache: 0-None Present CIWA-Ar Total Score: 12 S Progress Note (SOAP) Subjective: sweats tired no stomach aches interrupted sleep Objective: 01/05/17 12:09 Vital Signs Temperature 97.4 F L 01/05/17 10:08 Pulse Rate 89 01/05/17 10:08 Respiratory Rate 18 01/05/17 10:08 Blood Pressure 116/86 01/05/17 10:08 O2 Sat by Pulse Oximetry (%) Laboratory Tests 01/03/17 01/03/17 01/03/17 11:00 11:00 11:00 WBC 15.7 H D RBC 4.64 Hgb 14.5 Hct 43.1 MCV 93.0 MCH 31.3 MCHC 33.6 RDW 13.6 Plt Count 245 MPV 11.2 H Sodium 139 Potassium 4.2 Chloride 104 Carbon Dioxide 27 Anion Gap 8 BUN 9 Creatinine 0.6 Creat Clearance w eGFR > 60 Random Glucose 96 Calcium 8.7 Total Bilirubin 0.5 D AST 11 L ALT 27 Alkaline Phosphatase 80 Total Protein 7.1 Albumin 4.0 Urine Color Urine Appearance Urine pH Ur Specific [place] Urine Protein Urine Glucose (UA) Urine Ketones Urine Blood Urine Nitrite Urine Bilirubin Urine Urobilinogen Ur Leukocyte Esterase RPR Titer Nonreactive 01/03/17 15:30 WBC RBC Hgb Hct MCV MCH MCHC RDW Plt Count MPV Sodium Potassium Chloride Carbon Dioxide Anion Gap BUN Creatinine Creat Clearance w eGFR Random Glucose Calcium Total Bilirubin AST ALT Alkaline Phosphatase Total Protein Albumin Urine Color Straw Urine Appearance Clear Urine pH 6.0 Ur Specific [place] <= 1.005 Urine Protein Negative Urine Glucose (UA) Negative Urine Ketones Negative Urine Blood Negative Urine Nitrite Negative Urine Bilirubin Negative Urine Urobilinogen Negative Ur Leukocyte Esterase Negative RPR Titer labs ordered yesterday for h.pylori pending aaox3 ambulating no acute distress Assessment: 01/05/17 12:09 withdrawal sx Plan: continue detox increase fluids
[2017-01-05 14:33] LABS: BASOPHIL 0.9 % (0-2.0); EOSINOPHIL 5.3 % (0-4.5); MCH 30.5 pg (25.7-33.7); MCHC 33.1 g/dl (32.0-36.0); MEAN CELL VOLUME 92.1 fl (80-96); MEAN PLT VOLUME 10.8 fl (7.5-11.1); NEUTROPHILS 55.7 % (42.8-82.8); PLATELET COUNT 225 K/MM3 (134-434); RDW 13.4 % (11.6-15.6); WHITE BLOOD COUNT 10.1 K/mm3 (4.0-10.0)
[2017-01-05] MEDS: NICOTINE POLACRILEX 4 MG GUM BUC PRN (14:45)
[2017-01-05] MEDS: PHENYLEPHRINE 0.25%/STARCH 1 EACH SUPP.RECT RC SCH ×2 (15:24→22:26)
[2017-01-05] MEDS: chlordiazePOXIDE 5 MG CAPSULE PO SCH ×2 (17:59→22:26)
[2017-01-05] MEDS: IBUPROFEN 400 MG TABLET (FP) PO PRN (19:38)
[2017-01-05] MEDS: SODIUM CHLORIDE NASAL SPRAY 44 ML BOTTLE NS PRN (19:39)
[2017-01-05] MEDS: THIAMINE HCL 100 MG TABLET (FP) PO SCH (22:27)
[2017-01-06] MEDS: chlordiazePOXIDE 5 MG CAPSULE PO SCH ×2 (06:29→10:55)
[2017-01-06] MEDS: CEPHALEXIN MONOHYDRATE 500 MG CAPSULE (UD) PO SCH ×4 (06:29→23:10)
[2017-01-06] MEDS: NICOTINE POLACRILEX 4 MG GUM BUC PRN ×3 (06:32→23:37)
[2017-01-06] MEDS: MUPIROCIN 2% TOPICAL OINTMENT FOR DECOLONIZATION NS SCH ×2 (10:53→22:49)
[2017-01-06] MEDS: PHENYLEPHRINE 0.25%/STARCH 1 EACH SUPP.RECT RC SCH ×2 (10:53→22:49)
[2017-01-06] MEDS: NICOTINE 21 MG/24 HOURS TOPICAL PATCH TD SCH (10:54)
[2017-01-06] MEDS: PANTOPRAZOLE 20 MG TABLET (FP) PO SCH (10:54)
[2017-01-06] MEDS: PRENATAL VITAMINS W/ FOLIC ACID TABLET (FP) PO SCH (10:54)
[2017-01-06] MEDS: RANITIDINE HCL 150 MG TABLET (FP) PO SCH ×2 (10:54→22:50)
[2017-01-06] MEDS: BUDESONIDE/FORMETEROL FUMARATE 80/4.5 mcg INHALER IH SCH ×2 (10:55→22:50)
[2017-01-06] MEDS: IBUPROFEN 400 MG TABLET (FP) PO PRN ×2 (10:58→22:55)
[2017-01-06] MEDS: P-EPHED 60MG/TRIPROLIDI 2.5MG TABLET PO PRN ×2 (10:59→22:54)
[2017-01-06] MEDS: guaiFENesin/D-METHORPHAN HB 10 ML UNIT-DOSE CUPS PO PRN (11:01)
--- NOTE | 2017-01-06 12:51 | PN ---
BHS Progress Note (SOAP) Subjective: sweats interrupted sleep my nose is feeling so much better anxiety Objective: 01/06/17 12:50 Vital Signs Temperature 98.3 F 01/06/17 10:01 Pulse Rate 89 01/06/17 10:01 Respiratory Rate 18 01/06/17 10:01 Blood Pressure 122/70 01/06/17 10:01 O2 Sat by Pulse Oximetry (%) Laboratory Tests 01/03/17 01/03/17 01/03/17 11:00 11:00 11:00 WBC 15.7 H D RBC 4.64 Hgb 14.5 Hct 43.1 MCV 93.0 MCH 31.3 MCHC 33.6 RDW 13.6 Plt Count 245 MPV 11.2 H Neutrophils % Lymphocytes % Monocytes % Eosinophils % Basophils % Sodium 139 Potassium 4.2 Chloride 104 Carbon Dioxide 27 Anion Gap 8 BUN 9 Creatinine 0.6 Creat Clearance w eGFR > 60 Random Glucose 96 Calcium 8.7 Total Bilirubin 0.5 D AST 11 L ALT 27 Alkaline Phosphatase 80 Total Protein 7.1 Albumin 4.0 Urine Color Urine Appearance Urine pH Ur Specific [place] Urine Protein Urine Glucose (UA) Urine Ketones Urine Blood Urine Nitrite Urine Bilirubin Urine Urobilinogen Ur Leukocyte Esterase RPR Titer Nonreactive 01/03/17 01/05/17 15:30 11:40 WBC 10.1 H D RBC 4.39 Hgb 13.4 Hct 40.4 MCV 92.1 MCH 30.5 MCHC 33.1 RDW 13.4 Plt Count 225 MPV 10.8 Neutrophils % 55.7 Lymphocytes % 30.9 Monocytes % 7.2 Eosinophils % 5.3 H Basophils % 0.9 Sodium Potassium Chloride Carbon Dioxide Anion Gap BUN Creatinine Creat Clearance w eGFR Random Glucose Calcium Total Bilirubin AST ALT Alkaline Phosphatase Total Protein Albumin Urine Color Straw Urine Appearance Clear Urine pH 6.0 Ur Specific [place] <= 1.005 Urine Protein Negative Urine Glucose (UA) Negative Urine Ketones Negative Urine Blood Negative Urine Nitrite Negative Urine Bilirubin Negative Urine Urobilinogen Negative Ur Leukocyte Esterase Negative RPR Titer wbc count improving aaox3 ambulating no acute distress continue ABX as ordered Assessment: 01/06/17 12:50 withdrawal sx Plan: continue detox increase fluids
[2017-01-06] MEDS: SODIUM CHLORIDE NASAL SPRAY 44 ML BOTTLE NS PRN ×2 (14:29→22:53)
[2017-01-06] MEDS: chlordiazePOXIDE HCL 10 MG CAPSULE PO SCH ×2 (17:09→22:50)
[2017-01-06] MEDS: ALBUTEROL SO4 0.083% IH SOL 2.5 MG/3 ML VIAL.NEB. NEB PRN (20:44)
[2017-01-06] MEDS: predniSONE 20 MG TABLET (UD) PO SCH (22:50)
[2017-01-06] MEDS: THIAMINE HCL 100 MG TABLET (FP) PO SCH (22:50)
[2017-01-07 00:06] LABS: H.PYLORI AB IGA <9.0 units (0.0-8.9); H.PYLORI AB IGG <0.9 U/mL (0.0-0.8)
[2017-01-07] MEDS: CEPHALEXIN MONOHYDRATE 500 MG CAPSULE (UD) PO SCH (06:47)
[2017-01-07] MEDS: chlordiazePOXIDE HCL 10 MG CAPSULE PO SCH (06:47)
[2017-01-07] MEDS: MAG HYDROX/AL HYDROX/SIMETH 30 ML UNIT-DOSE CUP PO PRN (07:50)
[2017-01-07] MEDS: predniSONE 20 MG TABLET (UD) PO SCH (08:28)
--- NOTE | 2017-01-07 09:53 | DS ---
[facility] Detox Discharge Summary Admission Date: 01/03/17 Discharge Date: 01/07/17 - History Present History: Alcohol Dependence, Cocaine Dependence Pertinent Past History: see above - Physical Exam Results Vital Signs: Vital Signs Temperature 97.8 F 01/07/17 06:53 Pulse Rate 87 01/07/17 06:53 Respiratory Rate 18 01/07/17 06:53 Blood Pressure 126/61 01/07/17 06:53 O2 Sat by Pulse Oximetry (%) Pertinent Admission Physical Exam Findings: admitted in acute withdrawal medically stable on dc detox completed dc today Laboratory Tests 01/03/17 01/03/17 01/03/17 11:00 11:00 11:00 WBC 15.7 H D RBC 4.64 Hgb 14.5 Hct 43.1 MCV 93.0 MCH 31.3 MCHC 33.6 RDW 13.6 Plt Count 245 MPV 11.2 H Neutrophils % Lymphocytes % Monocytes % Eosinophils % Basophils % Sodium 139 Potassium 4.2 Chloride 104 Carbon Dioxide 27 Anion Gap 8 BUN 9 Creatinine 0.6 Creat Clearance w eGFR > 60 Random Glucose 96 Calcium 8.7 Total Bilirubin 0.5 D AST 11 L ALT 27 Alkaline Phosphatase 80 Total Protein 7.1 Albumin 4.0 Urine Color Urine Appearance Urine pH Ur Specific [place] Urine Protein Urine Glucose (UA) Urine Ketones Urine Blood Urine Nitrite Urine Bilirubin Urine Urobilinogen Ur Leukocyte Esterase RPR Titer Nonreactive H. pylori IgG Antibody H. pylori IgA Antibody 01/03/17 01/05/17 01/05/17 15:30 07:00 11:40 WBC 10.1 H D RBC 4.39 Hgb 13.4 Hct 40.4 MCV 92.1 MCH 30.5 MCHC 33.1 RDW 13.4 Plt Count 225 MPV 10.8 Neutrophils % 55.7 Lymphocytes % 30.9 Monocytes % 7.2 Eosinophils % 5.3 H Basophils % 0.9 Sodium Potassium Chloride Carbon Dioxide Anion Gap BUN Creatinine Creat Clearance w eGFR Random Glucose Calcium Total Bilirubin AST ALT Alkaline Phosphatase Total Protein Albumin Urine Color Straw Urine Appearance Clear Urine pH 6.0 Ur Specific [place] <= 1.005 Urine Protein Negative Urine Glucose (UA) Negative Urine Ketones Negative Urine Blood Negative Urine Nitrite Negative Urine Bilirubin Negative Urine Urobilinogen Negative Ur Leukocyte Esterase Negative RPR Titer H. pylori IgG Antibody <0.9 H. pylori IgA Antibody <9.0 Vital Signs - 24 hr 01/06/17 01/06/17 01/06/17 10:01 15:12 18:31 Temperature 98.3 F 97.6 F 98.8 F Pulse Rate 89 97 H 89 Respiratory 18 18 18 Rate Blood Pressure 122/70 110/71 111/68 01/06/17 01/07/17 01/07/17 23:56 03:30 06:53 Temperature 97.5 F L 97.8 F Pulse Rate 96 H 87 Respiratory 20 1 L 18 Rate Blood Pressure 111/72 126/61 - Treatment Hospital Course: Detox Protocol Followed, Detoxed Safely, Responded well, Discharged Condition Good, Rehab Referral Accepted - Medication Discharge Medications: Ambulatory Orders Diphenhydramine HCl [Benadryl -] 50 mg PO DAILY 05/06/16 Hydroxyzine Pamoate [Vistaril -] 25 mg PO TID #60 capsule 05/09/16 Albuterol Sulfate Inhaler - [Ventolin HFA Inhaler -] 2 inh PO Q4H PRN 01/03/17 Budesonide/Formeterol Fumarate [SYMBICORT 80/4.5mcg -] 1 inh PO BID 01/03/17 Omeprazole 20 mg PO DAILY 01/03/17 Ranitidine [Zantac -] 150 mg PO BID 01/03/17 - Diagnosis (1) Drug-induced mood disorder Current Visit: Yes Status: Acute (2) Insomnia Current Visit: Yes Status: Acute (3) Alcohol dependence with uncomplicated withdrawal Current Visit: Yes Status: Chronic (4) Cocaine dependence, uncomplicated Current Visit: Yes Status: Chronic (5) Alcohol dependence Current Visit: Yes Status: Acute (6) Cocaine dependence Current Visit: Yes Status: Acute - AMA Did Patient Leave Against Medical Advice: No
[2017-01-07] MEDS: PRENATAL VITAMINS W/ FOLIC ACID TABLET (FP) PO SCH (10:43)
[2017-01-07] MEDS: MUPIROCIN 2% TOPICAL OINTMENT FOR DECOLONIZATION NS SCH (10:43)
[2017-01-07] MEDS: RANITIDINE HCL 150 MG TABLET (FP) PO SCH (10:44)
[2017-01-07] MEDS: BUDESONIDE/FORMETEROL FUMARATE 80/4.5 mcg INHALER IH SCH (10:44)
[2017-01-07] MEDS: PANTOPRAZOLE 20 MG TABLET (FP) PO SCH (10:44)
[2017-01-07 11:30] VITALS: BP 126/73; PULSE 105; TEMP 99
== END 2017-01-07 11:05 | disposition home or self-care (01) | DRG 774 ==
LOC: YASAS 10:00 → Y6N 11:28
PROVIDERS: ADMIT Internal Medicine; ATTEND Internal Medicine
PROC: HZ2ZZZZ Detoxification Services for Substance Abuse Treatment (ICD-10-PCS; principal; 2017-01-03)
DX: F10.230 Alcohol dependence with withdrawal, uncomplicated (principal); F14.20 Cocaine dependence, uncomplicated; F17.210 Nicotine dependence, cigarettes, uncomplicated; F19.24 Other psychoactive substance dependence with psychoactive substance-induced mood disorder; G47.00 Insomnia, unspecified; J01.00 Acute maxillary sinusitis, unspecified; J45.909 Unspecified asthma, uncomplicated; K21.9 Gastro-esophageal reflux disease without esophagitis; D64.9 Anemia, unspecified; D57.3 Sickle-cell trait
CPT/HCPCS: 36415; 80053; 81003; 85025; 85027; 86593; 86677; 93005; 93010; 94640

== ENCOUNTER 2017-12-27 08:48 | Inpatient (IN) | payer OTHER ==
--- NOTE | 2017-12-27 09:17 | HP ---
CIWA Score - CIWA Score Nausea/Vomitin Muscle Tremors: 3 Anxiety: 2 Agitation: 2 Paroxysmal Sweats: 1-Minimal Palms Moist Orientation: 0-Oriented Tacttile Disturbances: 1-Very Mild Itch/Numbness Auditory Disturbances: 1-Very Mild Visual Disturbances: 1-Very Mild Sensitivity Headache: 2-Mild CIWA-Ar Total Score: 15 Admission ROS BHS - HPI Chief Complaint: i need help to stop drinking alcohol,cocaine,ecstasy,marijuana Allergies/Adverse Reactions: Allergies Allergy/AdvReac Type Severity Reaction Status Date / Time No Known Allergies Allergy Verified 12/27/17 10:03 History of Present Illness: this 42 years old female with alcohol dependence,cocaine and marijuana dependence ,ecstasy withdrawal symptom,seeking help to stop drinking and drugs nicotine dependence gerd anxiety,depression,insomnia multiple admissions in the past ,last 01/03/17 to 01/07/17 no significant period of sobriety Exam Limitations: No Limitations - Ebola screening Have you traveled outside of the country in the last 21 days: No Have you had contact with anyone from an Ebola affected area: No Do you have a fever: No - Review of Systems Constitutional: Loss of Appetite, Malaise, Night Sweats, Changes in sleep, Weakness EENT: reports: Nose Congestion Respiratory: reports: No Symptoms reported Cardiac: reports: Palpitations GI: reports: Nausea, Vomiting, Abdominal cramping : reports: No Symptoms Reported Musculoskeletal: reports: Back Pain, Muscle Pain Neuro: reports: Headache, Tremors Endocrine: reports: No Symptoms Reported Hematology: reports: No Symptoms Reported Psychiatric: reports: No Sypmtoms Reported, Judgement Intact, Mood/Affect Appropiate, Orientated x3, Depressed (insomnia) Patient History - Patient Medical History Hx Anemia: Yes (IRON DEFICIENCY ANEMIA AND SICKLE CELL TRAIT. NOT CURRENTLY ON IRON SUPPLE) Hx Asthma: Yes (Pt is on MDI.) Hx Chronic Obstructive Pulmonary Disease (COPD): No Hx Cancer: No Hx Cardiac Disorders: No Hx Congestive Heart Failure: No Hx Hypertension: No Hx Hypercholesterolemia: No HX Cerebrovascular Accident: No Hx Seizures: No Hx Dementia: No Hx Diabetes: No Hx Gastrointestinal Disorders: Yes (Pt has chronic acid reflux.) Hx Liver Disease: No Hx Genitourinary Disorders: No Hx Sexually Transmitted Disorders: No Hx Renal Disease (ESRD): No Hx Thyroid Disease: No Hx Human Immunodeficiency Virus (HIV): No (NEGATIVE HX last 10/04) Hx Hepatitis C: No (negative) Hx Depression: Yes Hx Suicide Attempt: No (denies) Hx Bipolar Disorder: No Hx Schizophrenia: No Other Medical History: no suicidal,no homicidal - Patient Surgical History Past Surgical History: Yes Hx Neurologic Surgery: No Hx Cataract Extraction: No Hx Cardiac Surgery: No Hx Lung Surgery: No Hx Breast Surgery: No Hx Breast Biopsy: No Hx Abdominal Surgery: Yes (ovarian cyst ) Hx Appendectomy: No Hx Cholecystectomy: No Hx Genitourinary Surgery: No Hx Section: No Hx Orthopedic Surgery: No Other Surgical History: ovarian cyst was removed 1992 Anesthesia Reaction: No - PPD History Previous Implant?: Yes Documented Results: Negative w/o proof Implanted On Prior [facility] Admission?: Yes Date: 05/08/16 Results: 0mm - Reproductive History Patient is a Female of Child Bearing Age (11 -55 yrs old): Yes Last Menstrual Period: 12/26/17 Patient : No - Smoking Cessation Smoking history: Current every day smoker Have you smoked in the past 12 months: Yes Aproximately how many cigarettes per day: 20 Hx Chewing Tobacco Use: No Initiated information on smoking cessation: Yes 'Breaking Loose' booklet given: 12/27/17 - Substance & Tx. History Hx Alcohol Use: Yes Hx Substance Use: Yes Substance Use Type: Alcohol, Cocaine, Marijuana Hx Substance Use Treatment: Yes ([facility] 01/03/17 to 01/07/17) - Substances Abused Alcohol Route: Oral Frequency: Daily Amount used: vodka 1/2pint/2 of 6 packs of beer Age of first use: 15 Date of Last Use: 12/27/17 Cocaine Route: Inhalation Frequency: 1-2 times per week Amount used: 40$ Age of first use: 35 Date of Last Use: 12/27/17 Marijuana/Hashish Route: Smoking Frequency: 1-3 times last 30 days Amount used: 2 puffs Age of first use: 16 Date of Last Use: 12/27/17 Ectasy Route: Oral Frequency: Daily Amount used: 10$ Age of first use: 42 Date of Last Use: 12/27/17 Family Disease History - Family Disease History Family Disease History: Diabetes: Grandparent (HTN), Heart Disease: Father ( alcohol,sober), Other: Grandparent, Mother (alcohol,dsa,sober), Sister (THYROID PROBLEM) Admission Physical Exam [facility] - Vital Signs Vital Signs: Vital Signs Temperature 97.5 F L 12/27/17 09:10 Pulse Rate 110 H 12/27/17 09:10 Respiratory Rate 18 12/27/17 09:10 Blood Pressure 124/76 12/27/17 09:10 O2 Sat by Pulse Oximetry (%) - Physical General Appearance: Yes: Moderate Distress, Tremorous, Irritable, Sweating, Anxious HEENTM: Yes: [place], Pharynx Normal Respiratory: Yes: Lungs Clear, Normal Breath Sounds, No Respiratory Distress Neck: Yes: Within Normal Limits, Supple, Trachea in good position Breast: Yes: Breast Exam Deferred Cardiology: Yes: Tachycardia Abdominal: Yes: Within Normal Limits, Normal Bowel Sounds, Non Tender, Flat, Soft Genitourinary: Yes: Within Normal Limits Back: Yes: Normal Inspection, Muscle Spasm Musculoskeletal: Yes: Back pain, Muscle Pain Extremities: Yes: Tremors Neurological: Yes: Within Normal Limits, utilization review rn II-XII NML intact, Alert, Motor Strength 5/5 Integumentary: Yes: Dry Lymphatic: Yes: Within Normal Limits - Diagnostic (1) Alcohol dependence with uncomplicated withdrawal Current Visit: Yes Status: Acute (2) Cocaine dependence Current Visit: No Status: Acute (3) Insomnia Current Visit: No Status: Acute (4) Asthma Current Visit: No Status: Chronic (5) Cocaine dependence, uncomplicated Current Visit: No Status: Chronic (6) GERD (gastroesophageal reflux disease) Current Visit: No Status: Chronic (7) Nicotine dependence Current Visit: Yes Status: Chronic Qualifiers: Nicotine product type: cigarettes Substance use status: uncomplicated Qualified Code(s): F17.210 - Nicotine dependence, cigarettes, uncomplicated (8) Sickle cell trait Current Visit: No Status: Chronic (9) Insomnia secondary to depression with anxiety Current Visit: Yes Status: Acute (10) Alcohol dependence with acute alcoholic intoxication Current Visit: Yes Status: Acute Cleared for Admission [facility] - Detox or Rehab [facility] Level of Care: Medically Managed Detox Regimen/Protocol: Librium [facility] Breath Alcohol Content Breath Alcohol Content: 0.064
[2017-12-27 09:19] VITALS: BMI 29.2
[2017-12-27] MEDS ORDERED: MAGNESIUM CITRATE 300 ML BOTTLE PO PRN (09:50)
[2017-12-27] MEDS ORDERED: P-EPHED 60MG/TRIPROLIDI 2.5MG TABLET PO PRN (09:50)
[2017-12-27] MEDS ORDERED: hydrOXYzine PAMOATE 50 MG CAPSULE (FP) PO PRN (09:50)
[2017-12-27] MEDS ORDERED: MAG HYDROX/AL HYDROX/SIMETH 30 ML UNIT-DOSE CUP PO PRN (09:50)
[2017-12-27] MEDS ORDERED: ACETAMINOPHEN 325 MG TABLET (FP) PO PRN (09:50)
[2017-12-27] MEDS ORDERED: MENTHOL/PHENOL 1 EACH UD MM PRN (09:50)
[2017-12-27] MEDS ORDERED: IBUPROFEN 400 MG TABLET (FP) PO PRN (09:50)
[2017-12-27] MEDS ORDERED: MAGNESIUM HYDROX 2400MG/30ML ORAL SUSPENSION 30 ML CUP PO PRN (09:50)
[2017-12-27] MEDS ORDERED: LOPERAMIDE HCL 2 MG CAPSULE PO PRN (09:50)
[2017-12-27] MEDS ORDERED: ALBUTEROL SO4 8 GM HFA INHALER IH PRN (09:54)
[2017-12-27] MEDS: chlordiazePOXIDE HCL 25 MG CAPSULE PO PRN (12:02)
[2017-12-27] MEDS: PRENATAL VITAMINS W/ FOLIC ACID TABLET (FP) PO SCH (12:03)
[2017-12-27] MEDS: BUDESONIDE/FORMETEROL FUMARATE 80/4.5 mcg INHALER IH SCH ×2 (12:04→22:29)
[2017-12-27] MEDS ORDERED: PATIENT'S OWN MEDICATION (NON-FORMULARY) (Omeprazole 20 MG) PO SCH (14:00)
--- NOTE | 2017-12-27 14:48 | EKG ---
Test Reason : Blood Pressure : / mmHG Vent. Rate : 092 BPM Atrial Rate : 092 BPM P-R Int : 130 ms QRS Dur : 080 ms QT Int : 338 ms P-R-T Axes : 025 068 045 degrees QTc Int : 417 ms NORMAL SINUS RHYTHM NORMAL ECG WHEN COMPARED WITH ECG OF 03-JAN-2017 12:42, NO SIGNIFICANT CHANGE WAS FOUND Confirmed by ROSARIO HUYNH MD ([id number]) on 12/27/2017 2:48:28 PM Referred By: Confirmed By:ROSARIO HUYNH MD
[2017-12-27 14:56] LABS: URINE APPEARANCE CLEAR; URINE BILIRUBIN NEGATIVE (<2.0 mg/dL); URINE COLOR STRAW; URINE GLUCOSE (UA) NEGATIVE (NEGATIVE); URINE KETONE NEGATIVE (NEGATIVE); URINE LEUK ESTERASE NEGATIVE (NEGATIVE); URINE NITRITE NEGATIVE (NEGATIVE); URINE PROTEIN NEGATIVE (NEGATIVE); URINE UROBILINOGEN NEGATIVE mg/dL (0.2-1.0)
--- NOTE | 2017-12-27 17:00 | CONSULT ---
[facility] Psychiatric Consult - Data Date of interview: 12/27/17 Admission source: [facility] Identifying data: Patient is a 42 year old single female, mother of two, unemployed, homeless, and is not receiving financial assistance. This is one of multiple admissions for patient. Patient admitted to detox for alcohol dependence. Substance Abuse History: Smoking Cessation. Smoking history: Current every day smoker. Have you smoked in the past 12 months: Yes. Aproximately how many cigarettes per day: 20. Hx Chewing Tobacco Use: No. Initiated information on smoking cessation: Yes. 'Breaking Loose' booklet given: 12/27/17. - Substance & Tx. History. Hx Alcohol Use: Yes. Hx Substance Use: Yes. Substance Use Type : Alcohol, Cocaine, Marijuana. Hx Substance Use Treatment: Yes ([facility] 01/03/17 to 01/07/17). - Substances Abused. Alcohol. Route: Oral. Frequency: Daily. Amount used: vodka 1/2pint/2 of 6 packs of beer. Age of first use: 15. Date of Last Use: 12/27/17. Cocaine. Route: Inhalation. Frequency: 1-2 times per week. Amount used: 40$. Age of first use: 35. Date of Last Use: 01/04. Marijuana/Hashish. Route: Smoking. Frequency: 1-3 times last 30 days. Amount used: 2 puffs. Age of first use: 16. Date of Last Use: . Ectasy. Route: Oral. Frequency: Daily. Amount used: 10$. Age of first use: 42. Date of Last Use: 12/27/17 Medical History: Anemia, Asthma, acid reflux, ovarian cyst was removed 1992 Psychiatric History: Patient denies h/o psychiatric hospitalization, outpatient care, and suicide attempt. Physical/Sexual Abuse/Trauma History: denies. Mental Status Exam - Mental Status Exam Alert and Oriented to: Time, Place, Person Cognitive Function: Good Patient Appearance: Well Groomed Mood: Euthymic Affect: Mood Congruent Patient Behavior: Appropriate, Cooperative Speech Pattern: Appropriate Voice Loudness: Normal Thought Process: Intact, Goal Oriented Thought Disorder: Not Present Hallucinations: Denies Suicidal Ideation: Denies Homicidal Ideation: Denies Insight/Judgement: Poor Sleep: Fair Appetite: Fair Muscle strength/Tone: Normal Gait/Station: Normal Psychiatric Findings - Problem List ([place] 1, 2,3) (1) Alcohol dependence with uncomplicated withdrawal Current Visit: Yes Status: Acute (2) Alcohol dependence Current Visit: Yes Status: Acute (3) Nicotine dependence Current Visit: Yes Status: Chronic Qualifiers: Nicotine product type: cigarettes Substance use status: uncomplicated Qualified Code(s): F17.210 - Nicotine dependence, cigarettes, uncomplicated - Initial Treatment Plan Initial Treatment Plan: Psychoeducation provided. Detoxification in progress. Observation.
[2017-12-27 17:34] LABS: EPI CELLS RARE /HPF (FEW)
[2017-12-27] MEDS: chlordiazePOXIDE HCL 25 MG CAPSULE PO SCH ×2 (17:48→22:30)
[2017-12-27] MEDS: NICOTINE POLACRILEX 2 MG GUM BUC PRN (21:09)
[2017-12-27] MEDS: THIAMINE HCL 100 MG TABLET (FP) PO SCH (22:29)
[2017-12-28] MEDS: chlordiazePOXIDE HCL 25 MG CAPSULE PO PRN (03:31)
[2017-12-28] MEDS: guaiFENesin/D-METHORPHAN HB 10 ML UNIT-DOSE CUPS PO PRN (03:31)
[2017-12-28] MEDS: chlordiazePOXIDE HCL 25 MG CAPSULE PO SCH ×4 (06:01→22:29)
[2017-12-28] MEDS ORDERED: PATIENT'S OWN MEDICATION (NON-FORMULARY) (Omeprazole 20 MG) PO SCH (08:35)
[2017-12-28] MEDS ORDERED: OMEPRAZOLE PO ONE (08:38)
[2017-12-28] MEDS ORDERED: PRILOSEC 20 MG PO ONE (09:10)
[2017-12-28] MEDS ORDERED: PATIENT'S OWN MEDICATION (NON-FORMULARY) (Omeprazole Magnesium [Prilosec Otc] 20 MG) PO SCH (10:00)
[2017-12-28 10:09] LABS: MCH 30.2 pg (25.7-33.7); MCHC 32.6 g/dl (32.0-36.0); MEAN CELL VOLUME 92.6 fl (80-96); MEAN PLT VOLUME 11.3 fl (7.5-11.1); PLATELET COUNT 238 K/MM3 (134-434); RBC 4.64 M/mm3 (3.60-5.2); RDW 13.7 % (11.6-15.6); WHITE BLOOD COUNT 10.1 K/mm3 (4.0-10.0)
[2017-12-28] MEDS: ASPIRIN 81 MG CHEWABLE TABLETS PO SCH (10:20)
[2017-12-28] MEDS: BUDESONIDE/FORMETEROL FUMARATE 80/4.5 mcg INHALER IH SCH ×2 (10:20→22:30)
[2017-12-28] MEDS: PRENATAL VITAMINS W/ FOLIC ACID TABLET (FP) PO SCH (10:20)
[2017-12-28] MEDS: NICOTINE POLACRILEX 2 MG GUM BUC PRN ×3 (10:22→23:07)
[2017-12-28 10:35] LABS: ALBUMIN 3.8 g/dl (3.4-5.0); ALK PHOS 84 U/L (45-117); ANION GAP 8 MMOL/L (8-16); BILIRUBIN,TOTAL 0.3 mg/dL (0.2-1); BLOOD UREA NITROGEN 8 mg/dL (7-18); CALCIUM 9.7 mg/dL (8.5-10.1); CHLORIDE 106 mmol/L (98-107); CO2 27 mmol/L (21-32); CREATININE 0.5 mg/dL (0.55-1.3); GLUCOSE,RANDOM 91 mg/dL (74-106); POTASSIUM 4.2 mmol/L (3.5-5.1); SGOT/AST 13 U/L (15-37); SGPT/ALT 28 U/L (13-61); SODIUM 141 mmol/L (136-145); TOT PROT 7.2 g/dl (6.4-8.2)
--- NOTE | 2017-12-28 11:41 | PN ---
S CIWA - CIWA Score Nausea/Vomitin-No Nausea/No Vomiting Muscle Tremors: 3 Anxiety: 3 Agitation: 3 Paroxysmal Sweats: 3 Orientation: 0-Oriented Tacttile Disturbances: 0-None Auditory Disturbances: 0-None Visual Disturbances: 0-None Headache: 0-None Present CIWA-Ar Total Score: 12 BHS Progress Note (SOAP) Subjective: sweats shakes interrupted sleep acid reflux irritable I need to see dietary Objective: 12/28/17 11:40 Vital Signs Temperature 97.9 F 12/28/17 11:02 Pulse Rate 84 12/28/17 11:02 Respiratory Rate 17 12/28/17 11:02 Blood Pressure 107/67 12/28/17 11:02 O2 Sat by Pulse Oximetry (%) Laboratory Tests 12/27/17 12/27/17 12/28/17 11:00 13:00 06:00 WBC 10.1 H RBC 4.64 Hgb 14.0 Hct 43.0 MCV 92.6 MCH 30.2 MCHC 32.6 RDW 13.7 Plt Count 238 MPV 11.3 H Sodium Potassium Chloride Carbon Dioxide Anion Gap BUN Creatinine Creat Clearance w eGFR Random Glucose Calcium Total Bilirubin AST ALT Alkaline Phosphatase Total Protein Albumin Urine Color Straw Urine Appearance Clear Urine pH 6.0 Ur Specific [place] 1.005 L Urine Protein Negative Urine Glucose (UA) Negative Urine Ketones Negative Urine Blood 1+ H Urine Nitrite Negative Urine Bilirubin Negative Urine Urobilinogen Negative Ur Leukocyte Esterase Negative Urine WBC (Auto) <1 Urine RBC (Auto) <1 Ur Epithelial Cells Rare RPR Titer HIV 1&2 Antibody Screen Negative HIV P24 Antigen Negative 12/28/17 12/28/17 06:00 06:00 WBC RBC Hgb Hct MCV MCH MCHC RDW Plt Count MPV Sodium 141 Potassium 4.2 Chloride 106 Carbon Dioxide 27 Anion Gap 8 BUN 8 Creatinine 0.5 L Creat Clearance w eGFR > 60 Random Glucose 91 Calcium 9.7 Total Bilirubin 0.3 AST 13 L ALT 28 Alkaline Phosphatase 84 Total Protein 7.2 Albumin 3.8 Urine Color Urine Appearance Urine pH Ur Specific [place] Urine Protein Urine Glucose (UA) Urine Ketones Urine Blood Urine Nitrite Urine Bilirubin Urine Urobilinogen Ur Leukocyte Esterase Urine WBC (Auto) Urine RBC (Auto) Ur Epithelial Cells RPR Titer Nonreactive HIV 1&2 Antibody Screen HIV P24 Antigen aaox3 ambulating no acute distress Assessment: 12/28/17 11:41 withdrawal sx Plan: continue detox increase fluids dietary consultation ordered pt own omeprozole ordered for 7am as per pt request.
[2017-12-28] MEDS: THIAMINE HCL 100 MG TABLET (FP) PO SCH (22:29)
[2017-12-28] MEDS: MELATONIN 5 MG TABLETS PO PRN (22:30)
[2017-12-29] MEDS: PATIENT'S OWN MEDICATION (NON-FORMULARY) (Omeprazole 20 MG) PO SCH (06:07)
[2017-12-29] MEDS: chlordiazePOXIDE HCL 25 MG CAPSULE PO SCH ×2 (06:07→11:00)
[2017-12-29] MEDS: NICOTINE POLACRILEX 2 MG GUM BUC PRN ×2 (09:22→18:12)
[2017-12-29] MEDS: BUDESONIDE/FORMETEROL FUMARATE 80/4.5 mcg INHALER IH SCH ×2 (11:00→22:36)
[2017-12-29] MEDS: ASPIRIN 81 MG CHEWABLE TABLETS PO SCH (11:00)
[2017-12-29] MEDS: PRENATAL VITAMINS W/ FOLIC ACID TABLET (FP) PO SCH (11:00)
--- NOTE | 2017-12-29 13:57 | PN ---
[facility] CIWA - CIWA Score Nausea/Vomitin-No Nausea/No Vomiting Muscle Tremors: 3 Anxiety: 3 Agitation: 3 Paroxysmal Sweats: 2 Orientation: 0-Oriented Tacttile Disturbances: 0-None Auditory Disturbances: 0-None Visual Disturbances: 0-None Headache: 0-None Present CIWA-Ar Total Score: 11 S Progress Note (SOAP) Subjective: sweats mild shakes interrupted sleep gassy i need hugo [place] Objective: 12/29/17 13:56 Vital Signs Temperature 98.1 F 12/29/17 10:22 Pulse Rate 78 12/29/17 10:22 Respiratory Rate 16 12/29/17 10:22 Blood Pressure 115/70 12/29/17 10:22 O2 Sat by Pulse Oximetry (%) Laboratory Tests 12/27/17 12/27/17 12/28/17 11:00 13:00 06:00 WBC 10.1 H RBC 4.64 Hgb 14.0 Hct 43.0 MCV 92.6 MCH 30.2 MCHC 32.6 RDW 13.7 Plt Count 238 MPV 11.3 H Sodium Potassium Chloride Carbon Dioxide Anion Gap BUN Creatinine Creat Clearance w eGFR Random Glucose Calcium Total Bilirubin AST ALT Alkaline Phosphatase Total Protein Albumin Urine Color Straw Urine Appearance Clear Urine pH 6.0 Ur Specific [place] 1.005 L Urine Protein Negative Urine Glucose (UA) Negative Urine Ketones Negative Urine Blood 1+ H Urine Nitrite Negative Urine Bilirubin Negative Urine Urobilinogen Negative Ur Leukocyte Esterase Negative Urine WBC (Auto) <1 Urine RBC (Auto) <1 Ur Epithelial Cells Rare RPR Titer HIV 1&2 Antibody Screen Negative HIV P24 Antigen Negative 12/28/17 12/28/17 06:00 06:00 WBC RBC Hgb Hct MCV MCH MCHC RDW Plt Count MPV Sodium 141 Potassium 4.2 Chloride 106 Carbon Dioxide 27 Anion Gap 8 BUN 8 Creatinine 0.5 L Creat Clearance w eGFR > 60 Random Glucose 91 Calcium 9.7 Total Bilirubin 0.3 AST 13 L ALT 28 Alkaline Phosphatase 84 Total Protein 7.2 Albumin 3.8 Urine Color Urine Appearance Urine pH Ur Specific [place] Urine Protein Urine Glucose (UA) Urine Ketones Urine Blood Urine Nitrite Urine Bilirubin Urine Urobilinogen Ur Leukocyte Esterase Urine WBC (Auto) Urine RBC (Auto) Ur Epithelial Cells RPR Titer Nonreactive HIV 1&2 Antibody Screen HIV P24 Antigen aaox3 ambulating no acute distress Assessment: 12/29/17 13:57 withdrawal sx Plan: continue detox increase fluids hugo ghotra ordered
[2017-12-29] MEDS: chlordiazePOXIDE 5 MG CAPSULE PO SCH ×2 (17:34→22:36)
[2017-12-29] MEDS: MELATONIN 5 MG TABLETS PO PRN (22:36)
[2017-12-29] MEDS: THIAMINE HCL 100 MG TABLET (FP) PO SCH (22:37)
[2017-12-30] MEDS: chlordiazePOXIDE 5 MG CAPSULE PO SCH ×2 (06:41→11:26)
[2017-12-30] MEDS: PATIENT'S OWN MEDICATION (NON-FORMULARY) (Omeprazole 20 MG) PO SCH (06:44)
[2017-12-30] MEDS: PRENATAL VITAMINS W/ FOLIC ACID TABLET (FP) PO SCH (11:26)
[2017-12-30] MEDS: ASPIRIN 81 MG CHEWABLE TABLETS PO SCH (11:26)
[2017-12-30] MEDS: BUDESONIDE/FORMETEROL FUMARATE 80/4.5 mcg INHALER IH SCH ×2 (11:29→22:34)
--- NOTE | 2017-12-30 15:43 | PN ---
[facility] Progress Note Note: interrupted sleep and fatigue Vital Signs Temperature 97.9 F 12/30/17 15:13 Pulse Rate 82 12/30/17 15:13 Respiratory Rate 18 12/30/17 15:13 Blood Pressure 116/73 12/30/17 15:13 O2 Sat by Pulse Oximetry (%) Laboratory Last Values WBC 10.1 K/mm3 (4.0-10.0) H 12/28/17 06:00 RBC 4.64 M/mm3 (3.60-5.2) 12/28/17 06:00 Hgb 14.0 GM/dL (10.7-15.3) 12/28/17 06:00 Hct 43.0 % (32.4-45.2) 12/28/17 06:00 MCV 92.6 fl (80-96) 12/28/17 06:00 MCH 30.2 pg (25.7-33.7) 12/28/17 06:00 MCHC 32.6 g/dl (32.0-36.0) 12/28/17 06:00 RDW 13.7 % (11.6-15.6) 12/28/17 06:00 Plt Count 238 K/MM3 (134-434) 12/28/17 06:00 MPV 11.3 fl (7.5-11.1) H 12/28/17 06:00 Sodium 141 mmol/L (136-145) 12/28/17 06:00 Potassium 4.2 mmol/L (3.5-5.1) 12/28/17 06:00 Chloride 106 mmol/L (98-107) 12/28/17 06:00 Carbon Dioxide 27 mmol/L (21-32) 12/28/17 06:00 Anion Gap 8 MMOL/L (8-16) 12/28/17 06:00 BUN 8 mg/dL (7-18) 12/28/17 06:00 Creatinine 0.5 mg/dL (0.55-1.3) L 12/28/17 06:00 Creat Clearance w eGFR > 60 (>60) 12/28/17 06:00 Random Glucose 91 mg/dL (74-106) 12/28/17 06:00 Calcium 9.7 mg/dL (8.5-10.1) 12/28/17 06:00 Total Bilirubin 0.3 mg/dL (0.2-1) 12/28/17 06:00 AST 13 U/L (15-37) L 12/28/17 06:00 ALT 28 U/L (13-61) 12/28/17 06:00 Alkaline Phosphatase 84 U/L (45-117) 12/28/17 06:00 Total Protein 7.2 g/dl (6.4-8.2) 12/28/17 06:00 Albumin 3.8 g/dl (3.4-5.0) 12/28/17 06:00 Urine Color Straw 12/27/17 13:00 Urine Appearance Clear 12/27/17 13:00 Urine pH 6.0 (5.0-8.0) 12/27/17 13:00 Ur Specific [place] 1.005 (1.010-1.035) L 12/27/17 13:00 Urine Protein Negative (NEGATIVE) 12/27/17 13:00 Urine Glucose (UA) Negative (NEGATIVE) 12/27/17 13:00 Urine Ketones Negative (NEGATIVE) 12/27/17 13:00 Urine Blood 1+ (NEGATIVE) H 12/27/17 13:00 Urine Nitrite Negative (NEGATIVE) 12/27/17 13:00 Urine Bilirubin Negative (<2.0 mg/dL) 12/27/17 13:00 Urine Urobilinogen Negative mg/dL (0.2-1.0) 12/27/17 13:00 Ur Leukocyte Esterase Negative (NEGATIVE) 12/27/17 13:00 Urine WBC (Auto) <1 /hpf (3-5) 12/27/17 13:00 Urine RBC (Auto) <1 /hpf (0-3) 12/27/17 13:00 Ur Epithelial Cells Rare /HPF (FEW) 12/27/17 13:00 RPR Titer Nonreactive (NONREACTIVE) 12/28/17 06:00 HIV 1&2 Antibody Screen Negative 12/27/17 11:00 HIV P24 Antigen Negative 12/27/17 11:00 AOx3 no distress no adventitious breath sounds Full ROM Ambulating in the unit withdrawal sx continue detox continue to monitor
[2017-12-30] MEDS: chlordiazePOXIDE HCL 10 MG CAPSULE PO SCH ×2 (17:27→22:34)
[2017-12-30] MEDS: NICOTINE POLACRILEX 2 MG GUM BUC PRN ×2 (17:29→22:48)
[2017-12-30] MEDS: THIAMINE HCL 100 MG TABLET (FP) PO SCH (22:34)
[2017-12-30] MEDS: MELATONIN 5 MG TABLETS PO PRN (22:34)
[2017-12-31] MEDS: guaiFENesin/D-METHORPHAN HB 10 ML UNIT-DOSE CUPS PO PRN (05:44)
[2017-12-31] MEDS: chlordiazePOXIDE HCL 10 MG CAPSULE PO SCH ×2 (05:44→10:45)
--- NOTE | 2017-12-31 09:48 | DS ---
[facility] Detox Discharge Summary Admission Date: 12/27/17 Discharge Date: 12/31/17 - History Present History: Alcohol Dependence Additional Comments: 42 years old female admitted on 12/27/17 for alcohol withdrawal sx completed detox regimen tolerated well denies alcohol withdrawal sx alert oriented x 3 no acute distress aftercare [facility] - Physical Exam Results Vital Signs: Vital Signs Temperature 97.3 F L 12/31/17 08:14 Pulse Rate 63 12/31/17 08:14 Respiratory Rate 18 12/31/17 08:14 Blood Pressure 105/69 12/31/17 08:14 O2 Sat by Pulse Oximetry (%) Pertinent Admission Physical Exam Findings: alcohol withdrawal sx Vital Signs Temperature 98.1 F 12/31/17 10:00 Pulse Rate 83 12/31/17 10:00 Respiratory Rate 18 12/31/17 10:00 Blood Pressure 111/6 L 12/31/17 10:00 O2 Sat by Pulse Oximetry (%) Laboratory Last Values WBC 10.1 K/mm3 (4.0-10.0) H 12/28/17 06:00 RBC 4.64 M/mm3 (3.60-5.2) 12/28/17 06:00 Hgb 14.0 GM/dL (10.7-15.3) 12/28/17 06:00 Hct 43.0 % (32.4-45.2) 12/28/17 06:00 MCV 92.6 fl (80-96) 12/28/17 06:00 MCH 30.2 pg (25.7-33.7) 12/28/17 06:00 MCHC 32.6 g/dl (32.0-36.0) 12/28/17 06:00 RDW 13.7 % (11.6-15.6) 12/28/17 06:00 Plt Count 238 K/MM3 (134-434) 12/28/17 06:00 MPV 11.3 fl (7.5-11.1) H 12/28/17 06:00 Sodium 141 mmol/L (136-145) 12/28/17 06:00 Potassium 4.2 mmol/L (3.5-5.1) 12/28/17 06:00 Chloride 106 mmol/L (98-107) 12/28/17 06:00 Carbon Dioxide 27 mmol/L (21-32) 12/28/17 06:00 Anion Gap 8 MMOL/L (8-16) 12/28/17 06:00 BUN 8 mg/dL (7-18) 12/28/17 06:00 Creatinine 0.5 mg/dL (0.55-1.3) L 12/28/17 06:00 Creat Clearance w eGFR > 60 (>60) 12/28/17 06:00 Random Glucose 91 mg/dL (74-106) 12/28/17 06:00 Calcium 9.7 mg/dL (8.5-10.1) 12/28/17 06:00 Total Bilirubin 0.3 mg/dL (0.2-1) 12/28/17 06:00 AST 13 U/L (15-37) L 12/28/17 06:00 ALT 28 U/L (13-61) 12/28/17 06:00 Alkaline Phosphatase 84 U/L (45-117) 12/28/17 06:00 Total Protein 7.2 g/dl (6.4-8.2) 12/28/17 06:00 Albumin 3.8 g/dl (3.4-5.0) 12/28/17 06:00 Urine Color Straw 12/27/17 13:00 Urine Appearance Clear 12/27/17 13:00 Urine pH 6.0 (5.0-8.0) 12/27/17 13:00 Ur Specific [place] 1.005 (1.010-1.035) L 12/27/17 13:00 Urine Protein Negative (NEGATIVE) 12/27/17 13:00 Urine Glucose (UA) Negative (NEGATIVE) 12/27/17 13:00 Urine Ketones Negative (NEGATIVE) 12/27/17 13:00 Urine Blood 1+ (NEGATIVE) H 12/27/17 13:00 Urine Nitrite Negative (NEGATIVE) 12/27/17 13:00 Urine Bilirubin Negative (<2.0 mg/dL) 12/27/17 13:00 Urine Urobilinogen Negative mg/dL (0.2-1.0) 12/27/17 13:00 Ur Leukocyte Esterase Negative (NEGATIVE) 12/27/17 13:00 Urine WBC (Auto) <1 /hpf (3-5) 12/27/17 13:00 Urine RBC (Auto) <1 /hpf (0-3) 12/27/17 13:00 Ur Epithelial Cells Rare /HPF (FEW) 12/27/17 13:00 RPR Titer Nonreactive (NONREACTIVE) 12/28/17 06:00 HIV 1&2 Antibody Screen Negative 12/27/17 11:00 HIV P24 Antigen Negative 12/27/17 11:00 lab noted - Treatment Hospital Course: Detox Protocol Followed, Detoxed Safely, Responded well, Discharged Condition Good, Rehab Referral Accepted Patient has Accepted a Rehab Referral to: [facility] - Medication Discharge Medications: Ambulatory Orders hydrOXYzine PAMOATE [Vistaril -] 25 mg PO TID #60 capsule 05/09/16 Albuterol Sulfate Inhaler - [Ventolin HFA Inhaler -] 2 inh PO Q4H PRN 01/03/17 Budesonide/Formeterol Fumarate [SYMBICORT 80/4.5mcg -] 1 inh PO BID 01/03/17 Aspirin [ASA -] 81 mg PO DAILY 12/27/17 Dicyclomine HCl [Bentyl -] 10 mg PO Q6H 12/27/17 Omeprazole Magnesium [Prilosec Otc] 20 mg PO DAILY 12/27/17 Omeprazole Magnesium [Prilosec Otc] 20 mg PO ONCE #1 tablet. 12/28/17 - Diagnosis (1) Alcohol dependence with acute alcoholic intoxication Status: Acute Qualifiers: Complication of substance-induced condition: uncomplicated Qualified Code(s ): F10.220 - Alcohol dependence with intoxication, uncomplicated (2) Asthma Status: Chronic Qualifiers: Asthma severity: mild Asthma persistence: intermittent Asthma complication type: with status asthmaticus Qualified Code(s): J45.22 - Mild intermittent asthma with status asthmaticus (3) GERD (gastroesophageal reflux disease) Status: Chronic Qualifiers: Esophagitis presence: without esophagitis Qualified Code(s): K21.9 - Gastro -esophageal reflux disease without esophagitis (4) Nicotine dependence Status: Acute Qualifiers: Nicotine product type: cigarettes Substance use status: in withdrawal Qualified Code(s): F17.213 - Nicotine dependence, cigarettes, with withdrawal - AMA Did Patient Leave Against Medical Advice: No
[2017-12-31] MEDS: BUDESONIDE/FORMETEROL FUMARATE 80/4.5 mcg INHALER IH SCH (10:33)
[2017-12-31] MEDS: PRENATAL VITAMINS W/ FOLIC ACID TABLET (FP) PO SCH (10:33)
[2017-12-31] MEDS: ASPIRIN 81 MG CHEWABLE TABLETS PO SCH (10:33)
[2017-12-31 11:14] VITALS: BP 111/6; PULSE 83; TEMP 98.1
== END 2017-12-31 11:14 | disposition home or self-care (01) | DRG 774 ==
LOC: YASAS 08:48 → Y6N 10:15
PROC: HZ2ZZZZ Detoxification Services for Substance Abuse Treatment (ICD-10-PCS; principal; 2017-12-27)
DX: F10.230 Alcohol dependence with withdrawal, uncomplicated (principal); F14.20 Cocaine dependence, uncomplicated; F12.20 Cannabis dependence, uncomplicated; F15.10 Other stimulant abuse, uncomplicated; F17.210 Nicotine dependence, cigarettes, uncomplicated; F51.05 Insomnia due to other mental disorder; F41.8 Other specified anxiety disorders; F32.9 Major depressive disorder, single episode, unspecified; D64.9 Anemia, unspecified; D57.3 Sickle-cell trait; J45.22 Mild intermittent asthma with status asthmaticus; K21.9 Gastro-esophageal reflux disease without esophagitis; Z86.79 Personal history of other diseases of the circulatory system
CPT/HCPCS: 36415; 80053; 81003; 81015; 85027; 86593; 87389; 93005; 93010